=== PATIENT | male | born 1945 | race Caucasian/White ===

== ENCOUNTER 2016-05-29 08:28 | Observation (INO) | payer OTHER, MEDICARE ==
[2016-05-29] MEDS ORDERED: NS 1,000 ML IV ONE ×2 (08:39→09:34)
--- NOTE | 2016-05-29 08:48 | CPEKG ---
Heart Rate: 61 RR Interval: 984 P-R Interval: 176 QRSD Interval: 92 QT Interval: 492 QTC Interval: 496 P Saucier: 3 QRS Saucier: 6 T Wave Saucier: 0 EKG Severity - BORDERLINE ECG - EKG Impression: SINUS RHYTHM EKG Impression: BORDERLINE PROLONGED QT INTERVAL Electronically Signed By: Ruby Phelps 29-May-2016 15:00:12
[2016-05-29 08:57] LABS: % IMMATURE GRANULYOCYTES 0.9 % (0.0-1.1); ABSOLUTE IMMATURE GRANULOCYTES 0.08 10^3/uL (0.00-0.10); ADD DIFF? NO; ADD MORPH? NO; ADD SCAN? NO; ATYPICAL LYMPHOCYTE FLAG 0 (0-99); FRAGMENT RBC FLAG 0 (0-99); HEMATOCRIT 36.9 % (40.0-51.0); HEMOGLOBIN 12.8 g/dL (13.7-17.5); LEFT SHIFT FLG 0 (0-99); LIPEMIA HEMOLYSIS FLAG 90 (0-99); MEAN CELL HEMOGLOBIN 36.1 pg (27.9-34.1); MEAN CELL HEMOGLOBIN CONCENTR. 34.7 g/dL (32.4-36.7); MEAN CELL VOLUME 103.9 fL (81.5-99.8); MEAN PLATELET VOLUME 9.5 fL (8.7-11.7); PLATELET CLUMPS FLAG 0 (0-99); PLATELET COUNT 367 10^3/uL (150-400); RED BLOOD CELL COUNT 3.55 10^6/uL (4.40-6.38); RED CELL DISTRIBUTION WIDTH 13.6 % (11.5-15.2)
[2016-05-29 09:20] LABS: ANION GAP 10 mEq/L (8-16); CALCIUM 9.2 mg/dL (8.5-10.4); CARBON DIOXIDE 30 mEq/l (22-31); CHLORIDE 100 mEq/L (97-110); CREATININE 0.8 mg/dL (0.7-1.3); GLOMERULAR FILTRATION RATE > 60; GLUCOSE 78 mg/dL (70-100); POTASSIUM 3.8 mEq/L (3.5-5.2); SODIUM 140 mEq/L (134-144)
--- NOTE | 2016-05-29 09:33 | EDPHY ---
H & P Time Seen by Provider: 05/29/16 08:31 HPI/ROS: HPI Fall out of bed. 70-year-old male by ambulance from the [facility] living [facility]. Unwitnessed fall last night out of bed. undetermined down time. Patient found on floor. Patient was complaining of some vague upper back pain involving both shoulder blades. Denies chest pain. No palpitations. He does not remember the fall. He is thinks he hit his head but he is not sure. He denies being on antiplatelet or anticoagulant medications at this time. Denies any new weakness or loss of sensation in his extremities. No changes in vision. ROS: Constitutional: No fever, no chills. No weakness. Eyes: No discharge. No changes in vision. ENT: No sore throat. No nasal congestion or rhinorrhea. Respiratory: No cough. No shortness of breath. Cardiac: No chest pain, no palpitations. Gastrointestinal: No abdominal pain, no vomiting, no diarrhea. Genitourinary: No hematuria. No dysuria or increased frequency with urination. Musculoskeletal: No back pain. No neck pain. As above. No extremity pain. Skin: No rashes. Neurological: No headache. No focal weakness or altered sensation. Past medical history: Chronic respiratory disease, chronic pain, history of bone cancer, hypertension, lifetime smoker. Narcotic caution on previous medical records. Social history: Smoker. Denies alcohol. Physical Exam: General Appearance: Sleepy but easily arousable. This patient is responding to questions appropriately and in full sentences. This patient appears well- hydrated and well-nourished. Head: Normocephalic atraumatic except for a superficial abrasion mid upper forehead.. Face: Facial bones are stable on palpation. Eyes: Pupils equal and round and reactive to light, no pallor or injection. No lid erythema or edema. ENT, Mouth: Mucous membranes dry. Dentition is intact. No malocclusion of the jaw. No tongue lacerations or abrasions. Pharynx is clear. The bilateral nasal canals are clear. No septal hematoma. Respiratory: There are no retractions, lungs are clear to auscultation with good air movement bilaterally. Chest wall is stable to AP and lateral palpation. Cardiovascular: Regular rate and rhythm. No murmur. Gastrointestinal: Abdomen is soft and nontender, no masses, bowel sounds normal. Neurological: Motor sensory function is intact. Cranial nerves are normal. Cerebellar function intact. Skin: Warm and dry, no rashes. No lacerations, abrasions or contusions. Musculoskeletal: Neck is supple and nontender. The trachea is midline. Rightward scoliosis noted. No midline cervical, thoracic, lumbar or sacral tenderness on palpation. No flank tenderness on palpation. Extremities are symmetrical, full range of motion. All joints in the bilateral upper and bilateral lower extremities range without pain or impingement. No tenderness on palpation of the long bones in the bilateral upper and bilateral lower extremities. Psychiatric: No agitation. No depression. Database: EKG: EKG time is 8:46 a.m.; EKG shows a narrow complex normal sinus rhythm with a ventricular rate of 61. The ID, QRS, QT intervals are within normal limits. There are no ST-T wave changes indicative of ischemic or injury pattern. No evidence of right heart strain. Interpreted by me. Imaging: Chest x-ray PA and lateral; the cardiac mediastinal silhouette is unremarkable. Left-sided basilar pneumonia versus atelectasis. New mid thoracic compression fractures since January of 2016. No evidence pneumothorax. No other acute cardiopulmonary disease process noted. Interpreted by me. CT scan of head without contrast; atrophy. No acute pathology. Results were discussed with staff radiologist. Procedures: Emergency department course: IV was placed. He was placed on a vehicle monitor technician. EKG was performed and reviewed by myself. He will be sent for CT imaging of his head. Blood work including CK will be checked. Patient will be hydrated with a L of IV normal saline initially. Vital signs reviewed and are normal. 11:15 a.m., discussed results of chest x-ray with the patient and his nurses. Will treat for possible pneumonia. Blood cultures drawn. Patient given IV ceftriaxone and IV azithromycin. He does not meet SIRS criteria and sepsis. 11:35 a.m., spoke with hospitalist. Case discussed in detail. Patient accepted for admission under Dr. De Jesus. Differential Diagnosis: The differential diagnosis on this patient includes but is not limited to dehydration, opiate pain medication abuse, alcohol intoxication, rhabdomyolysis , head injury. This represents a partial list of diagnoses considered. These considerations are based on history, physical exam, past history, reassessment and diagnostic testing. Smoking Status: Current every day smoker Constitutional: Initial Vital Signs Temperature (C) 36.4 C 05/29/16 08:28 Heart Rate 76 05/29/16 08:28 Respiratory Rate 18 05/29/16 08:28 Blood Pressure 159/76 H 05/29/16 08:28 O2 Sat (%) 94 05/29/16 08:28 O2 Delivery Mode Nasal Cannula O2 (L/minute) 4 Allergies/Adverse Reactions: Sulfa (Sulfonamide Antibiotics) [Sulfa(Sulfonamide Antibiotics)] Allergy ( Verified 02/08/16 13:15) Home Medications: Medication Instructions Recorded Albuterol [Proventil Inhaler HFA 2 puffs IH Q4H PRN 05/29/16 (*)] Calcium Carbonate [Tums 500MG (*)] 500 mg PO PRN PRN 05/29/16 Cyclobenzaprine [Flexeril 10 MG 10 mg PO TID PRN 05/29/16 (*)] DULoxetine [Cymbalta 60 MG (*)] 60 mg PO DAILY 05/29/16 Gabapentin [Neurontin 300 MG (*)] 300 mg PO TID 05/29/16 Naproxen Sodium [Aleve 220 MG (*)] 220 mg PO QID PRN 05/29/16 Omeprazole 40 mg PO DAILY 05/29/16 Temazepam [Restoril 15 MG (*)] 30 mg PO HS PRN 05/29/16 Medical Decision Making - Data Points Laboratory Results: Laboratory Results 05/29/16 08:50 05/29/16 08:50 Medications Given: Discontinued Medications Albuterol/Ipratropium (Duoneb) 3 ml IH QID TERRY Stop: 11/25/16 15:59 Last Admin: 05/29/16 16:32 Dose: Not Given Sodium Chloride (Ns) 1,000 mls @ 0 mls/hr IV EDNOW ONE PRN Reason: Wide Open Stop: 05/29/16 08:40 Last Admin: 05/29/16 08:50 Dose: 1,000 mls Sodium Chloride (Ns) 1,000 mls @ 0 mls/hr IV ONCE ONE PRN Reason: Wide Open Stop: 05/29/16 09:35 Last Admin: 05/29/16 09:45 Dose: 1,000 mls Azithromycin 500 mg/ Dextrose 255 mls @ 255 mls/hr IV EDNOW ONE PRN Reason: Protocol Stop: 05/29/16 12:16 Last Admin: 05/29/16 12:03 Dose: 255 mls Ceftriaxone Sodium/Dextrose (Rocephin 1 Gm (Premix)) 50 mls @ 100 mls/hr IV EDNOW ONE PRN Reason: Protocol Stop: 05/29/16 11:46 Last Admin: 05/29/16 11:33 Dose: 50 mls Departure - Departure Disposition: [facility] Acute Clinical Impression: Dehydration, History of fall, Pneumonia, Thoracic compression fracture, Polysubstance abuse
[2016-05-29 10:09] LABS: ETHANOL SERUM 69 mg/dL (0-10)
[2016-05-29 10:21] LABS: TROPONIN I < 0.012 ng/mL (0-0.034)
[2016-05-29] MEDS ORDERED: AZITHROMYCIN IV 500 MG in D5W 250 ML IV ONE (11:17)
[2016-05-29] MEDS ORDERED: ONDANSETRON DISINTEGRATING 4 MG TAB PO PRN (15:56)
[2016-05-29] MEDS ORDERED: oxyCODONE IR 5 MG TAB PO PRN (15:56)
[2016-05-29] MEDS ORDERED: ONDANSETRON 4 MG/2 ML VIAL IVP PRN (15:56)
[2016-05-29] MEDS ORDERED: ALBUTEROL 3 ML DEYVIAL IH PRN (15:56)
[2016-05-29] MEDS ORDERED: ACETAMINOPHEN 325 MG TAB PO PRN (15:56)
[2016-05-29] MEDS ORDERED: PROMETHAZINE HCL 25 MG/ML INJ IVP PRN (15:56)
[2016-05-29] MEDS ORDERED: CYCLOBENZAPRINE 10 MG TAB PO PRN (15:58)
[2016-05-29] MEDS ORDERED: TEMAZEPAM 15 MG CAP PO PRN (15:58)
[2016-05-29] MEDS ORDERED: CALCIUM CARBONATE 500 MG CHEWABLE TAB PO PRN (15:58)
[2016-05-29] MEDS ORDERED: IPRATROPIUM/ALBUTEROL 3 ML DEYVIAL IH SCH (16:00)
[2016-05-29] MEDS ORDERED: NS 1,000 ML IV SCH (16:00)
[2016-05-29] MEDS ORDERED: LORazepam 2 MG/ML INJ IVP PRN (16:24)
--- NOTE | 2016-05-29 17:53 | GHP ---
DATE OF ADMISSION: 05/29/2016 CHIEF COMPLAINT: "I do not know why I am here." HISTORY: This is a 70-year-old man with past medical history of chronic alcohol abuse as well as pr evious chronic narcotic and benzodiazepine dependency and COPD who presents with a history of having fallen out of bed at his assisted living facility. Apparently he was found on the floor. At the t [place] my evaluation, patient has no recollection of falling. He states he has no idea how he ended up here in the hospital. He notes this is normal for him, as his memory has been getting worse recent ly. He was found to have evidence of pneumonia while in the ER and is being admitted for treatment of pneumonia, which was explained to him. He, at this time, other than confusion as to why he is he re, has no complaints. PAST MEDICAL HISTORY: Includes: 1. Chronic alcohol abuse. 2. Chronic narcotic and benzodiazepine use, which is now no longer occurring. 3. COPD. 4. History of prostate cancer with bony metastases. 5. Prior aspiration pneumonia. 6. Prior depression with suicide attempts. 7. Cervical spinal stenosis. FAMILY HISTORY: This was reviewed, and per chart review, includes a cousin with prostate cancer. SOCIAL HISTORY: The patient lives at [facility]. He denies having any family i [facility], but does have an MD POA listed named Ed. Has remote tobacco use, and notes he is currently using alcohol. For that reason, he was taken off his narcotics and benzos. ADVANCED DIRECTIVE: Last advanced directive in our system states that he is full code, but would li ke care withdrawn should he fail to progress. He does have a palliative care note, however, subsequ ent to that, saying that he is DNR. This is clearly documented, and was verified by his MD POA, and this will be documented as his goals of care. REVIEW OF SYSTEMS: This is unobtainable secondary to patient's mental status, though he denies any complaints. MEDICATIONS: Include: 1. Calcium carbonate. 2. Temazepam. 3. Omeprazole. 4. Gabapentin. 5. Cymbalta. 6. Flexeril. 7. Naproxen. 8. Albuterol. ALLERGIES: Include sulfa. PHYSICAL EXAMINATION: VITAL SIGNS: BP 156/76, heart rate 68, respiratory rate 20, O2 sats 95% on 4 L. Temperature is 36.8. GENERAL APPEARANCE: This is a chronically ill-appearing male, appears ol [place] than stated age. He is awake and alert. No acute distress. EYES: Anicteric. HEENT: Poor de ntition, oropharynx clear. CARDIOVASCULAR: Regular rate and rhythm, no MRG. PULMONARY: Decreased breath sounds throughout. He does have left basilar crackles. ABDOMEN: Soft, nontender, positive bowel sounds. EXTREMITIES: No clubbing, cyanosis, or edema. SKIN: Warm, dry, well perfused. NEURO/PSYCH: Patient has sign ificant cognitive deficits and very poor memory, but is alert and appropriate. CLINICAL DATA: Labs reviewed, significant for white blood cell count of 8.9, hematocrit 36.9, plate lets of 367. Chemistry is unremarkable. Troponin is less than 0.012. Chest x-ray shows left basilar pneumonia versus left basilar atelectasis. This was personally revie wed. Head CT is negative for any acute findings. ASSESSMENT/PLAN: This is a 70-year-old man with chronic alcohol abuse as well as chronic obstructiv e pulmonary disease who presents with unwitnessed fall and presumed pneumonia. 1. Pneumonia. The patient is a very poor historian, though he does have mild hypoxia and evidence of a left-sided infiltrate on chest x-ray, which is atelectasis versus pneumonia. He has been start ed on ceftriaxone and azithromycin. We will transition him to oral levofloxacin tomorrow given that I suspect this is a relatively mild pneumonia. Will check influenza swab. 2. Acute hypoxic respiratory failure. The patient is requiring 4 L of O2 to maintain oxygen satura tions in the low 90s. He does have underlying chronic obstructive pulmonary disease, but no clear e vidence of acute exacerbation. It sounds as if his mobility is quite limited at baseline, atelectas is undoubtedly contributing. Ambulate t.i.d., IS, p.r.n. albuterol nebs. Suspect some of this is l ikely chronic. 3. Chronic alcohol abuse. Apparently patient recently had his narcotic contract severed with his randy coronel management doctor due to his ongoing alcohol abuse. I did discuss with him if he intends to laurence t drinking, and he was able to state that he is not. He is definitely at risk for withdrawal, has h ad withdrawal in the past. We will start p.r.n. vodka and monitor for signs or symptoms of withdraw al. We will provide multivitamin, thiamine, and folate. 4. History of prostate cancer. Some discussion in the chart whether or not this was ever an accura te diagnosis, but apparently he has had history of prostate cancer with bony metastases. At any rat e, it does not appear that he is currently undergoing treatment, and this is not contributing to his acute presentation. 5. Code status. The patient is too confused to have this conversation. On chart review, there are a couple of contradictory notes, although the most recent note stated that he should be DNR, and th is was confirmed by his MD ROXANA, Ed. Will ask Palliative to get involved, as there are some notes al so on the chart from the patient that sound as if he does not want any medical care and query if he should be readmitted to the hospital in the future. 6. Patient is new to my care. Old records reviewed. Summary is as per HPI and past medical histor y. Care plan reviewed with ER physician, including plans for treatment of pneumonia. /[id number]/MODL
[2016-05-29] MEDS ORDERED: VODKA 50 ML BOTTLE PO SCH (18:00)
[2016-05-29] MEDS: GABAPENTIN 300 MG CAP PO SCH ×2 (18:16→21:58)
[2016-05-29] MEDS: MAG HYDROX/AL HYDROX/SIMETH 30 ML UDCUP PO PRN (22:05)
[2016-05-29] MEDS: IPRATROPIUM/ALBUTEROL 4GM MDI IH SCH (22:19)
[2016-05-29 22:35] VITALS: RESP 18
[2016-05-30 05:10] LABS: % IMMATURE GRANULYOCYTES 0.6 % (0.0-1.1); ABSOLUTE IMMATURE GRANULOCYTES 0.06 10^3/uL (0.00-0.10); ADD DIFF? NO; ADD MORPH? NO; ADD SCAN? NO; ATYPICAL LYMPHOCYTE FLAG 10 (0-99); FRAGMENT RBC FLAG 0 (0-99); HEMATOCRIT 29.5 % (40.0-51.0); HEMOGLOBIN 10.3 g/dL (13.7-17.5); LEFT SHIFT FLG 0 (0-99); LIPEMIA HEMOLYSIS FLAG 90 (0-99); MEAN CELL HEMOGLOBIN 36.4 pg (27.9-34.1); MEAN CELL HEMOGLOBIN CONCENTR. 34.9 g/dL (32.4-36.7); MEAN CELL VOLUME 104.2 fL (81.5-99.8); MEAN PLATELET VOLUME 9.2 fL (8.7-11.7); PLATELET CLUMPS FLAG 0 (0-99); PLATELET COUNT 291 10^3/uL (150-400); RED BLOOD CELL COUNT 2.83 10^6/uL (4.40-6.38); RED CELL DISTRIBUTION WIDTH 14.1 % (11.5-15.2)
[2016-05-30 05:26] LABS: ANION GAP 6 mEq/L (8-16); CALCIUM 7.5 mg/dL (8.5-10.4); CARBON DIOXIDE 26 mEq/l (22-31); CHLORIDE 111 mEq/L (97-110); CREATININE 0.6 mg/dL (0.7-1.3); GLOMERULAR FILTRATION RATE > 60; GLUCOSE 85 mg/dL (70-100); MAGNESIUM 1.6 mg/dL (1.6-2.3); POTASSIUM 3.4 mEq/L (3.5-5.2); SODIUM 143 mEq/L (134-144)
[2016-05-30] MEDS: IPRATROPIUM/ALBUTEROL 4GM MDI IH SCH ×2 (06:43→13:27)
[2016-05-30] MEDS ORDERED: FOLIC ACID 1 MG TAB PO SCH (09:00)
[2016-05-30] MEDS ORDERED: DULoxetine 60 MG CAP PO SCH (09:00)
[2016-05-30] MEDS ORDERED: AZITHROMYCIN IV 500 MG in D5W 250 ML IV SCH (09:00)
[2016-05-30] MEDS ORDERED: MULTIVITAMINS 1 EACH TAB PO SCH (09:00)
[2016-05-30] MEDS ORDERED: THIAMINE HCL 100 MG TAB PO SCH (09:00)
[2016-05-30] MEDS ORDERED: PANTOPRAZOLE SODIUM 40 MG TAB PO SCH (09:00)
[2016-05-30] MEDS ORDERED: ENOXAPARIN 40 MG/0.4 ML SYR SC SCH (09:00)
[2016-05-30] MEDS ORDERED: NON-FORMULARY NEW DRUG (Omeprazole [Omeprazole] 40 MG) PO SCH (09:00)
[2016-05-30] MEDS: GABAPENTIN 300 MG CAP PO SCH (10:32)
[2016-05-30 11:32] VITALS: BP 129/80; PULSE 95; TEMP 99; O2SAT 94
--- NOTE | 2016-05-30 12:07 | PDDCSUM ---
Discharge Summary Discharge Summary: Dates of service 05/29-05/30/16 Discharge dx: # LLL PNA # cognitive deficits/dementia # falll from bed # alcohol abuse and dependency # hx of chronic narcotic and benzo dependency Procedures/consulations: none Hospital course by problem: # LLL pna: mild and without significant sxs, treated with levofloxacin and dc to complete course # dementia: appears relatively advanced in terms of his memory deficits, resides in assisted living currently and may be headed towards higher level of care in the near future but not currently interested # etoh abuse: does not plan to quit, given etoh in house Dc to assisted living Meds SEE EHR >35 min spent in dc more than half in coordination of care
[2016-05-30] MEDS: MAG HYDROX/AL HYDROX/SIMETH 30 ML UDCUP PO PRN (13:42)
== END 2016-05-30 14:50 | disposition home health service (06) ==
LOC: EDUNIT# → INTOOBSV 11:36 → F3E 15:47
PROVIDERS: ADMIT Internal Medicine; ATTEND Internal Medicine
DX: J18.9 Pneumonia, unspecified organism (principal); F03.90 Unspecified dementia, unspecified severity, without behavioral disturbance, psychotic disturbance, mood disturbance, and anxiety; S22.000A Wedge compression fracture of unspecified thoracic vertebra, initial encounter for closed fracture; W06.XXXA Fall from bed, initial encounter; F10.20 Alcohol dependence, uncomplicated; F11.21 Opioid dependence, in remission; I10 Essential (primary) hypertension; F17.210 Nicotine dependence, cigarettes, uncomplicated; J44.9 Chronic obstructive pulmonary disease, unspecified; Y92.122 Bedroom in nursing home as the place of occurrence of the external cause; Z85.830 Personal history of malignant neoplasm of bone; Z91.5 Personal history of self-harm; Z85.46 Personal history of malignant neoplasm of prostate
CPT/HCPCS: 70450; 71020; 93005; 96361; 96365; 96367; 97165; 99285; G0378; G8987; G8988; J0456; J0696; J1650; 80305; G0480

== ENCOUNTER 2016-06-06 03:20 | Inpatient (IN) | payer OTHER, MEDICARE ==
[2016-06-06] MEDS ORDERED: NS 500 ML IV ONE (03:23)
--- NOTE | 2016-06-06 03:34 | EDPHY ---
H & P HPI/ROS: HPI CHIEF COMPLAINT: Generalized weakness, fall HISTORY OF PRESENT ILLNESS: This patient is 70-year-old male, he presents emergency room by EMS after he had 2 separate falls today. Fire came to give him a lift assist any started complaining of right lateral rib pain and pelvis pain. They contacted EMS and EMS brought him to the emergency room. He was recently here on May 30 with a left lower lobe pneumonia. He does have a history of dementia, recurrent falls, alcohol abuse, narcotic abuse, benzo abuse. He presents emergency room tonight stating that he feels globally weak. He does complain of right lateral rib pain also complains of bilateral hip pain. Patient was able to ambulate to the EMS stretcher. But appears very weak. Does complain of nausea no chest pain does complain of shortness of breath. Past Medical History: Left lower lobe pneumonia recently diagnosed recently hospitalized on May 30, dementia, recurrent falls, alcohol abuse, history of narcotic benzo use, oxygen dependent 5 L lives independently at [facility] Past Surgical History: No recent surgical history Social History: Alcohol use, lives at [facility] independent living size Family History:Noncontributory ROS REVIEW OF SYSTEMS: A comprehensive 10 point review of systems is otherwise negative aside from elements mentioned in the history of present illness. Exam Constitutional appears frail, triage nursing summary reviewed, vital signs reviewed, awake/alert. Eyes normal conjunctivae and sclera, EOMI, PERRLA. HENT normal inspection, atraumatic, moist mucus membranes, no epistaxis, neck supple/ no meningismus, no raccoon eyes. Respiratory crackles bilateral bases, normal breath sounds, no respiratory distress, no wheezing. Cardiovascular rate normal, regular rhythm, no murmur, no edema, distal pulses normal. Gastrointestinal soft, non-tender, no rebound, no guarding, normal bowel sounds, no distension, no pulsatile mass. Genitourinary no CVA tenderness. Musculoskeletal no midline vertebral tenderness, full range of motion, no calf swelling, no tenderness of extremities, no meningismus, good pulses, neurovascularly intact. Skin pink, warm, & dry, no rash, skin atraumatic. Neurologic awake, alert and oriented x 3, AAOx3, moves all 4 extremities equally, motor intact, sensory intact, CN II-XII intact, normal cerebellar, normal vision, normal speech. Psychiatric normal mood/affect. Heme/Lymph/Immune no lymphadenopathy. Differential Diagnosis: Includes but is not limited to in a particular order: Worsening pneumonia, failure to thrive, dehydration, electrolyte abnormality, sepsis, hypoxia Medical Decision Making: Plan for this patient's patient had an IV established obtain blood work, patient will need an EKG, troponin, chest x-ray pelvis x-ray CT scan of his head due to fall. Re-evaluation: ED x-ray chest negative for evidence of acute trauma. There is a left lower lobe infiltrate. Image interpreted by myself. ED x-ray pelvis: No evidence of acute trauma specifically no evidence of acute pelvic fracture. Image interpreted myself. CT scan of the head without IV contrast The results of the study are head without IV contrast are negative for acute traumatic injury The study was read by Dr. Ni. I viewed the images myself on the PACS system. EKG interpretation by me on record in [employer] system. Impression time of EKG 3:35 a.m., this is sinus rhythm rate of 65 otherwise unremarkable EKG no acute ischemic changes. 0421: re-evaluation this time this patient is resting comfortably appears nontoxic. Patient need to be admitted for generalized weakness failure to thrive recurrent falls. Left lower lobe pneumonia. I do not see any acute evidence of traumatic injury on his CT scan of his head chest x-ray or pelvis x- ray. I do have a great concern about discharging him as he has recurrent falls and is injuring himself he does drink alcohol he does appear frail and cachectic and was just recently here in the hospital. I think the best plan for this patient to be admitted for generalized weakness failure to thrive. Hydration. Further evaluation of the left lower lobe infiltrate with a CT scan of his chest. And possible higher level of care placement at [facility]. As he is only in the independent living facility. Source: Patient, EMS - Medical/Surgical History Hx Asthma: No Hx Chronic Respiratory Disease: Yes Hx Diabetes: No Hx Cardiac Disease: Yes Hx Renal Disease: No Hx Cirrhosis: No Hx Alcoholism: No Hx HIV/AIDS: No Hx Splenectomy or Spleen Trauma: No Other PMH: HX of Bone CA, HTN, is a life time smoker 3/4 ppd now - Social History Smoking Status: Current every day smoker Constitutional: Initial Vital Signs O2 Sat (%) 93 06/06/16 03:23 O2 Delivery Mode Nasal Cannula O2 (L/minute) 5 Allergies/Adverse Reactions: Sulfa (Sulfonamide Antibiotics) [Sulfa(Sulfonamide Antibiotics)] Allergy ( Verified 02/08/16 13:15) Home Medications: Medication Instructions Recorded Albuterol [Proventil Inhaler HFA 2 puffs IH Q4H PRN 05/29/16 (*)] Calcium Carbonate [Tums 500MG (*)] 500 mg PO PRN PRN 05/29/16 Cyclobenzaprine [Flexeril 10 MG 10 mg PO TID PRN 05/29/16 (*)] DULoxetine [Cymbalta 60 MG (*)] 60 mg PO DAILY 05/29/16 Gabapentin [Neurontin 300 MG (*)] 300 mg PO TID 05/29/16 Naproxen Sodium [Aleve 220 MG (*)] 220 mg PO QID PRN 05/29/16 Omeprazole 40 mg PO DAILY 05/29/16 Temazepam [Restoril 15 MG (*)] 30 mg PO HS PRN 05/29/16 Acetaminophen [Tylenol 325mg (*)] 650 mg PO Q4HRS PRN #0 tab 05/30/16 Multivitamins [Multivitamin (*)] 1 each PO DAILY #0 tab 05/30/16 Thiamine HCl [Vitamin B-1] 100 mg PO DAILY #0 tab 05/30/16 levOFLOXACIN [levAQUIN (*)] 750 mg PO DAILY AT 10AM #5 tab 05/30/16 Medical Decision Making - Data Points Laboratory Results: Laboratory Results 06/06/16 03:30 06/06/16 03:30 06/06/16 06/06/16 06/06/16 03:30 03:30 03:30 WBC 8.86 10^3/uL 10^3/uL (3.80-9.50) RBC 3.01 10^6/uL L 10^6/uL (4.40-6.38) Hgb 10.8 g/dL L g/dL (13.7-17.5) Hct 31.1 % L % (40.0-51.0) MCV 103.3 fL H fL (81.5-99.8) MCH 35.9 pg H pg (27.9-34.1) MCHC 34.7 g/dL g/dL (32.4-36.7) RDW 13.8 % % (11.5-15.2) Plt Count 261 10^3/uL 10^3/uL (150-400) MPV 9.9 fL fL (8.7-11.7) Neut % (Auto) 64.3 % % (39.3-74.2) Lymph % (Auto) 24.0 % % (15.0-45.0) [place] % (Auto) 8.2 % % (4.5-13.0) Eos % (Auto) 2.3 % % (0.6-7.6) Baso % (Auto) 1.0 % % (0.3-1.7) Nucleat RBC Rel Count 0.0 % % (0.0-0.2) Absolute Neuts (auto) 5.69 10^3/uL 10^3/uL (1.70-6.50) Absolute Lymphs (auto) 2.13 10^3/uL 10^3/uL (1.00-3.00) Absolute Monos (auto) 0.73 10^3/uL 10^3/uL (0.30-0.80) Absolute Eos (auto) 0.20 10^3/uL 10^3/uL (0.03-0.40) Absolute Basos (auto) 0.09 10^3/uL 10^3/uL (0.02-0.10) Absolute Nucleated RBC 0.00 10^3/uL 10^3/uL (0-0.01) Immature Gran % 0.2 % % (0.0-1.1) Immature Gran # 0.02 10^3/uL 10^3/uL (0.00-0.10) PT 15.9 SEC H SEC (12.0-15.0) INR 1.27 H (0.83-1.16) APTT 33.0 SEC SEC (23.0-38.0) Sodium 141 mEq/L mEq/L (134-144) Potassium 3.4 mEq/L L mEq/L (3.5-5.2) Chloride 105 mEq/L mEq/L (97-110) Carbon Dioxide 28 mEq/l mEq/l (22-31) Anion Gap 8 mEq/L mEq/L (8-16) BUN 4 mg/dL L mg/dL (7-23) Creatinine 0.8 mg/dL mg/dL (0.7-1.3) Estimated GFR > 60 Glucose 82 mg/dL mg/dL (70-100) Calcium 9.3 mg/dL mg/dL (8.5-10.4) Magnesium 1.6 mg/dL mg/dL (1.6-2.3) Total Bilirubin 0.7 mg/dL mg/dL (0.1-1.4) Conjugated Bilirubin 0.4 mg/dL mg/dL (0.0-0.5) Unconjugated Bilirubin 0.3 mg/dL mg/dL (0.0-1.1) AST 25 IU/L IU/L (17-59) ALT 26 IU/L IU/L (21-72) Alkaline Phosphatase 115 IU/L IU/L (38-126) Creatine Kinase 98 IU/L IU/L (0-224) CK-MB (CK-2) Fraction 1.76 ng/mL ng/mL (0-3.19) Troponin I < 0.012 ng/mL ng/mL (0-0.034) NT-Pro-B Natriuret Pep 238 pg/mL H pg/mL (0-125) Total Protein 6.0 g/dL L g/dL (6.3-8.2) Albumin 2.9 g/dL L g/dL (3.5-5.0) Lipase 56.0 IU/L IU/L (23-300) Ethyl Alcohol 32 mg/dL H mg/dL (0-10) Medications Given: Discontinued Medications Sodium Chloride (Ns) 500 mls @ 0 mls/hr IV ONCE ONE PRN Reason: As Directed Stop: 06/06/16 03:24 Last Admin: 06/06/16 03:45 Dose: 500 mls Departure - Departure Disposition: [facility] Acute Clinical Impression: Generalized weakness, Recurrent falls Failure to thrive Qualifiers: Failure to thrive age range: in adult Qualified Code(s): R62.7 - Adult failure to thrive Condition: Fair Referrals: Patient,NotPresent [Primary Care Provider] - As per Instructions
--- NOTE | 2016-06-06 03:37 | CPEKG ---
Heart Rate: 65 RR Interval: 923 P-R Interval: 180 QRSD Interval: 88 QT Interval: 468 QTC Interval: 487 P Henning: 2 QRS Henning: 12 T Wave Henning: 0 EKG Severity - BORDERLINE ECG - EKG Impression: SINUS RHYTHM EKG Impression: BORDERLINE PROLONGED QT INTERVAL Electronically Signed By: Addi Felipe 06-Jun-2016 07:29:26
[2016-06-06 03:45] LABS: % IMMATURE GRANULYOCYTES 0.2 % (0.0-1.1); ABSOLUTE IMMATURE GRANULOCYTES 0.02 10^3/uL (0.00-0.10); ADD DIFF? NO; ADD MORPH? NO; ADD SCAN? NO; ATYPICAL LYMPHOCYTE FLAG 0 (0-99); FRAGMENT RBC FLAG 0 (0-99); HEMATOCRIT 31.1 % (40.0-51.0); HEMOGLOBIN 10.8 g/dL (13.7-17.5); LEFT SHIFT FLG 0 (0-99); LIPEMIA HEMOLYSIS FLAG 90 (0-99); MEAN CELL HEMOGLOBIN 35.9 pg (27.9-34.1); MEAN CELL HEMOGLOBIN CONCENTR. 34.7 g/dL (32.4-36.7); MEAN CELL VOLUME 103.3 fL (81.5-99.8); MEAN PLATELET VOLUME 9.9 fL (8.7-11.7); PLATELET CLUMPS FLAG 0 (0-99); PLATELET COUNT 261 10^3/uL (150-400); RED BLOOD CELL COUNT 3.01 10^6/uL (4.40-6.38); RED CELL DISTRIBUTION WIDTH 13.8 % (11.5-15.2)
[2016-06-06 03:53] LABS: INR 1.27 (0.83-1.16); PROTIME(PATIENT) 15.9 SEC (12.0-15.0)
[2016-06-06 03:59] LABS: ALANINE AMINOTRANSFERASE 26 IU/L (21-72); ALBUMIN 2.9 g/dL (3.5-5.0); ALKALINE PHOSPHATASE 115 IU/L (38-126); ANION GAP 8 mEq/L (8-16); ASPARTATE AMINOTRANSFERASE 25 IU/L (17-59); BILIRUBIN,TOTAL 0.7 mg/dL (0.1-1.4); BILIRUBIN-CONJUGATED 0.4 mg/dL (0.0-0.5); BILIRUBIN-UNCONJUGATED 0.3 mg/dL (0.0-1.1); CALCIUM 9.3 mg/dL (8.5-10.4); CARBON DIOXIDE 28 mEq/l (22-31); CHLORIDE 105 mEq/L (97-110); CREATININE 0.8 mg/dL (0.7-1.3); ETHANOL SERUM 32 mg/dL (0-10); GLOMERULAR FILTRATION RATE > 60; GLUCOSE 82 mg/dL (70-100); MAGNESIUM 1.6 mg/dL (1.6-2.3); POTASSIUM 3.4 mEq/L (3.5-5.2); SODIUM 141 mEq/L (134-144)
[2016-06-06 04:09] LABS: CREATINE KINASE-MB FRACTION 1.76 ng/mL (0-3.19); TROPONIN I < 0.012 ng/mL (0-0.034)
[2016-06-06] MEDS ORDERED: ONDANSETRON DISINTEGRATING 4 MG TAB PO PRN (04:43)
[2016-06-06] MEDS ORDERED: ONDANSETRON 4 MG/2 ML VIAL IVP PRN (04:43)
[2016-06-06] MEDS ORDERED: ALBUTEROL 3 ML DEYVIAL IH PRN (04:43)
[2016-06-06] MEDS ORDERED: oxyCODONE IR 5 MG TAB PO PRN (04:43)
[2016-06-06] MEDS ORDERED: NS 1,000 ML IV SCH (04:45)
[2016-06-06] MEDS ORDERED: PIPERACILLIN/TAZO 4.5 GM/DEX 100 ML IV ONE (05:04)
[2016-06-06] MEDS ORDERED: VANCOMYCIN HCL/NORMAL SALINE 250 ML IV ONE (05:04)
[2016-06-06] MEDS ORDERED: PROTOCOL POTASSIUM 1 DOSE MISC PRN (09:21)
[2016-06-06] MEDS ORDERED: PROTOCOL K PHOSPHATE 1 DOSE IV PRN (09:21)
[2016-06-06] MEDS ORDERED: PROTOCOL MAGNESIUM 1 DOSE IV PRN (09:21)
[2016-06-06] MEDS ORDERED: LORazepam 2 MG/ML INJ IVP PRN (09:37)
[2016-06-06] MEDS ORDERED: MAG HYDROX/AL HYDROX/SIMETH 30 ML UDCUP PO PRN (09:37)
[2016-06-06] MEDS ORDERED: LORazepam 1 MG TAB PO PRN (09:37)
[2016-06-06] MEDS: ENOXAPARIN 40 MG/0.4 ML SYR SC SCH (10:05)
--- NOTE | 2016-06-06 10:37 | GHP ---
[f rep st] HISTORY AND PHYSICAL DATE OF ADMISSION: 06/06/2016 CHIEF COMPLAINT: Falls. HISTORY OF PRESENT ILLNESS: This is a 70-year-old man with a history of longstanding alcohol abuse as well as chronic narcotic and benzodiazepine dependency and dementia, who presents status post multiple falls at home. Apparently, the fire department had to come to his house several times in order to help him off the ground. The fire department ultimately became concerned about his well being given horrific disarray of his living situation, and contacted EMS to have him brought to the emergency room. He was recently seen by myself in this hospital with a left lower lobe pneumonia, and at that time despite concerns that he was having failure to thrive, he felt very strongly that he wanted to go home to his cat and was not willing to consider other options such as SNF. At the time of my evaluation, patient is very somnolent and only minimally communicative. He does note that he feels weak and has pain in his hips and right flank. He really is unable to provide any other history secondary to his somnolence. PAST MEDICAL HISTORY: 1. Includes chronic alcohol abuse. 2. Chronic narcotic and benzodiazepine dependency. 3. Recent hospitalization for left lower lobe pneumonia. 4. Dementia. 5. History of prostate cancer with bony metastases. 6. COPD. 7. History of aspiration pneumonia. 8. Prior issues of depression and suicide attempt. 9. Cervical spine stenosis. FAMILY HISTORY: Cousin with prostate cancer. SOCIAL HISTORY: The patient has been residing at [facility]. He does have a cat and per EMS, there is cat feces and urine all over his home. He is a daily heavy drinker. Prior tobacco use. REVIEW OF SYSTEMS: A 10-point review of systems obtained. Negative except as per HPI. HOME MEDICATIONS: 1. Thiamine. 2. Restoril. 3. Omeprazole. 4. Naproxen. 5. Multivitamin. 6. Gabapentin. 7. Cymbalta. 8. Flexeril. 9. Tums. 10. Albuterol. 11. Tylenol. ALLERGIES: Sulfa. PHYSICAL EXAM: BP 125/73, heart rate 57, respiratory rate 20, O2 sats 92% on 5 L, temperature is 36.5. GENERAL APPEARANCE: The patient is chronically ill appearing. He is cachectic, he is somnolent, but arousable. EYES: Anicteric. HEENT: Oropharynx clear, poor dentition. Regular rate and rhythm, no MRG. CTA bilaterally to anterior exam. Decreased breath sounds throughout. ABDOMEN : Soft, nontender. Positive bowel sounds. EXTREMITIES: No clubbing, cyanosis , or edema. SKIN: Warm, dry, well perfused. NEURO/PSYCH: Again, patient is quite somnolent but arousable. He moves all 4 extremities. CLINICAL DATA: Labs reviewed. Significant for white blood cell count of 8.8, hematocrit of 31.1, platelets of 261. INR is 1.2. Chemistry significant for a potassium of 3.4, creatinine is 0.8. Troponin less than 0.012. LFTs are unremarkable. Chest x-ray shows persistent basilar consolidation with possible new left mid lung zone pneumonia. Pelvis x-ray personally reviewed and interpreted, showing nothing acute. Chest CT, personally reviewed and interpreted, showing multiple rib fractures that appear to be subacute in the left 4th through 11th ribs. Moderate T6 compression fracture and increasing versus new infiltrates in the lingular right middle lobe and right and left lower lobes with small ground glass opacity in the anterior left upper lobe, possible aspiration pneumonia. There is also evidence of cardiomegaly and a stable 4.1 cm ascending thoracic aortic aneurysm. Head CT: No acute intracranial abnormalities. EKG, personally reviewed and interpreted, shows sinus rhythm without acute ischemic changes. ASSESSMENT/PLAN: This is a 70-year-old man with a past medical history of chronic alcohol abuse, dementia and failure to thrive, presenting status post multiple falls at home with multiple rib fractures and worsening bilateral pneumonia. 1. Pneumonia. This is in the setting of recent hospitalization and multiple rib fractures. The patient is at high risk for aspiration given his chronic alcoholism and history of prior aspiration pneumonia. He had recently been treated with a course of levofloxacin, though uncertain if he continued to take this medication after discharge from hospital. He was given vancomycin and Zosyn in the emergency department which will be continued for the time being. Blood and sputum cultures are pending. 2. Acute hypoxic respiratory failure, currently requiring 5 L to maintain O2 sats in the mid 90s in the setting of above as well as acute encephalopathy. Treatment as per above as well as bronchodilators as needed. 3. Acute encephalopathy. The patient is quite somnolent, possibly related to medications given in the emergency department. He does have underlying dementia , and this also could represent delirium in the setting of acute illness. Will monitor for improvement. 4. Alcohol abuse and dependency. At his last hospitalization several days ago , patient was clear that he was not interested in quitting. At this time, given his significant worsening, it is unclear if he is able to even make that kind of decision. We will start him on CIWA protocol for now. Blood alcohol level at the time of presentation was 32. 5. Multiple rib fractures. Again, in the setting of frequent falling at home and alcoholism. IS, ambulation three times daily. 6. Failure to thrive. Again, the patient was found in a living situation that was noted to be likely not only unsanitary but unsafe. He has had adult protective services involved in the past, and they will likely need to be involved again. PT, OT and case management also will be involved during his hospitalization. 7. Code status. From prior hospitalizations, he has been noted to be DNR and this will be continued. 8. Disposition: Inpatient status. Patient will need greater than 48 hours stay for evaluation and management of above. The patient is new to my care. Care plan reviewed with Dr. Waller in the Emergency Department including plans for antibiotics. /[id number]/MODL MTDD
[2016-06-06 11:18] LABS: MAGNESIUM 1.6 mg/dL (1.6-2.3); POTASSIUM 3.7 mEq/L (3.5-5.2)
[2016-06-06] MEDS: PIPERACILLIN/TAZO 3.375 GM/DEX 50 ML IV SCH ×2 (12:44→18:03)
[2016-06-06] MEDS: CYCLOBENZAPRINE 10 MG TAB PO PRN (14:26)
[2016-06-06] MEDS: GABAPENTIN 300 MG CAP PO SCH ×2 (14:26→22:15)
[2016-06-06] MEDS ORDERED: VANCOMYCIN 750 MG in D5W 150 ML IV SCH (19:00)
[2016-06-06] MEDS: ACETAMINOPHEN 325 MG TAB PO PRN (19:18)
--- NOTE | 2016-06-06 19:21 | HOSPPROG ---
Hospitalist Progress Note Assessment/Plan: H&P reviewed, patient seen a examined. Agree with plan as per Dr. Péerz. I will follow-up in am. Objective: Vital Signs Temp Pulse Resp BP Pulse Ox 36.6 C 61 16 149/81 H 96 06/06/16 13:48 06/06/16 13:48 06/06/16 13:48 06/06/16 13:48 06/06/16 13:48 06/05/16 06/06/16 06/07/16 05:59 05:59 05:59 Intake Total 500 Balance 500 PT 15.9 SEC (12.0-15.0) H 06/06/16 03:30 INR 1.27 (0.83-1.16) H 06/06/16 03:30 ICD10 Worksheet Patient Problems: Problems Problem Status Onset Failure to thrive Acute Generalized weakness Acute Recurrent falls Acute Acute encephalopathy Acute Acute hyperactive alcohol withdrawal delirium Acute Altered mental status Acute Aspiration into airway Acute Chronic pain Acute Dehydration Acute History of fall Acute Opiate dependence, continuous Acute Palliative care encounter Acute Pancreatitis Acute Pneumonia Acute Pneumonia Acute Polypharmacy Acute Polysubstance abuse Acute Polysubstance dependence including opioid drug with daily use Acute Rib fractures Acute Thoracic compression fracture Acute
[2016-06-06 19:44] LABS: POTASSIUM 3.6 mEq/L (3.5-5.2)
[2016-06-06] MEDS ORDERED: POTASSIUM CL 10 MEQ TAB PO ONE (23:29)
[2016-06-07] MEDS: TEMAZEPAM 15 MG CAP PO PRN ×2 (01:07→19:41)
[2016-06-07] MEDS: PIPERACILLIN/TAZO 3.375 GM/DEX 50 ML IV SCH ×3 (01:38→12:18)
[2016-06-07] MEDS ORDERED: POTASSIUM CL 10 MEQ TAB PO ONE ×3 (02:30→20:42)
[2016-06-07 05:54] LABS: % IMMATURE GRANULYOCYTES 0.4 % (0.0-1.1); ABSOLUTE IMMATURE GRANULOCYTES 0.03 10^3/uL (0.00-0.10); ADD DIFF? NO; ADD MORPH? NO; ADD SCAN? NO; ATYPICAL LYMPHOCYTE FLAG 0 (0-99); FRAGMENT RBC FLAG 0 (0-99); HEMATOCRIT 29.8 % (40.0-51.0); HEMOGLOBIN 10.4 g/dL (13.7-17.5); LEFT SHIFT FLG 0 (0-99); LIPEMIA HEMOLYSIS FLAG 90 (0-99); MEAN CELL HEMOGLOBIN 36.7 pg (27.9-34.1); MEAN CELL HEMOGLOBIN CONCENTR. 34.9 g/dL (32.4-36.7); MEAN CELL VOLUME 105.3 fL (81.5-99.8); PLATELET CLUMPS FLAG 0 (0-99); PLATELET COUNT 229 10^3/uL (150-400); RED BLOOD CELL COUNT 2.83 10^6/uL (4.40-6.38); RED CELL DISTRIBUTION WIDTH 13.9 % (11.5-15.2)
[2016-06-07 06:05] LABS: ANION GAP 6 mEq/L (8-16); CALCIUM 7.8 mg/dL (8.5-10.4); CARBON DIOXIDE 25 mEq/l (22-31); CHLORIDE 109 mEq/L (97-110); CREATININE 0.7 mg/dL (0.7-1.3); GLOMERULAR FILTRATION RATE > 60; GLUCOSE 83 mg/dL (70-100); MAGNESIUM 1.5 mg/dL (1.6-2.3); POTASSIUM 3.3 mEq/L (3.5-5.2); SODIUM 140 mEq/L (134-144)
[2016-06-07] MEDS ORDERED: VANCOMYCIN HCL/NORMAL SALINE 250 ML IV SCH (07:00)
[2016-06-07] MEDS ORDERED: MAGNESIUM SULF 1 GM/DEXTROSE 100 ML IV ONE (07:31)
[2016-06-07] MEDS: PANTOPRAZOLE SODIUM 40 MG TAB PO SCH (08:49)
[2016-06-07] MEDS: MULTIVITAMINS 1 EACH TAB PO SCH (08:49)
[2016-06-07] MEDS: GABAPENTIN 300 MG CAP PO SCH ×3 (08:49→21:31)
[2016-06-07] MEDS: DULoxetine 60 MG CAP PO SCH (08:49)
[2016-06-07] MEDS: FOLIC ACID 1 MG TAB PO SCH (08:50)
[2016-06-07] MEDS: ENOXAPARIN 40 MG/0.4 ML SYR SC SCH (08:50)
[2016-06-07] MEDS ORDERED: NON-FORMULARY NEW DRUG (Omeprazole [Omeprazole] 40 MG) PO SCH (09:00)
[2016-06-07] MEDS: NICOTINE 14 MG/24 HR PATCH TD SCH (13:45)
--- NOTE | 2016-06-07 16:27 | HOSPPROG ---
Hospitalist Progress Note Assessment/Plan: * Aspiration pneumonia -change to PO Augmentin * COPD with chronic respiratory failure - baseline 4L * Etoh abuse -no signs of withdrawal * Prostate ca with naseem mets * Metabolic/toxic encephalopathy - improved * Multiple subacute rib fractures due to falls -unsafe living situation -patient now agreeable to SNF Subjective: no new complaints. Objective: Vital Signs Temp Pulse Resp BP Pulse Ox 36.7 C 79 16 135/69 H 94 06/07/16 15:06 06/07/16 15:06 06/07/16 15:06 06/07/16 15:06 06/07/16 15:06 Microbiology 06/07/16 08:10 - Final Sputum, Expectorated Laboratory Results 06/07/16 05:30 06/07/16 05:30 06/06/16 06/07/16 06/08/16 05:59 05:59 05:59 Intake Total 500 Balance 500 PT 15.9 SEC (12.0-15.0) H 06/06/16 03:30 INR 1.27 (0.83-1.16) H 06/06/16 03:30 - Physical Exam Constitutional: no apparent distress, appears nourished, not in pain Cardiovascular: regular rate and rhythym, no murmur, rub, or gallop Respiratory: no respiratory distress, no rales or rhonchi, clear to auscultation Gastrointestinal: normoactive bowel sounds, soft, non-tender abdomen, no palpable masses Skin: no rashes or abrasions, no fluctuance, no induration Neurologic: AAOx3, sensation intact bilaterally Psychiatric: interacting appropriately, not anxious, not encephalopathic, thought process linear ICD10 Worksheet Patient Problems: Problems Problem Status Onset Failure to thrive Acute Generalized weakness Acute Recurrent falls Acute Acute encephalopathy Acute Acute hyperactive alcohol withdrawal delirium Acute Altered mental status Acute Aspiration into airway Acute Chronic pain Acute Dehydration Acute History of fall Acute Opiate dependence, continuous Acute Palliative care encounter Acute Pancreatitis Acute Pneumonia Acute Pneumonia Acute Polypharmacy Acute Polysubstance abuse Acute Polysubstance dependence including opioid drug with daily use Acute Rib fractures Acute Thoracic compression fracture Acute
[2016-06-07] MEDS ORDERED: PIPERACILLIN SODIUM/TAZOBACTAM 3.375 GM in D5W 50 ML IV SCH (18:00)
[2016-06-07] MEDS: CYCLOBENZAPRINE 10 MG TAB PO PRN (19:41)
[2016-06-07] MEDS: ACETAMINOPHEN 325 MG TAB PO PRN (19:41)
[2016-06-07] MEDS: AMOXICILLIN/CLAVULANATE POT 875/125 MG TAB PO SCH (19:42)
[2016-06-07 20:22] LABS: POTASSIUM 3.9 mEq/L (3.5-5.2)
[2016-06-08 05:35] LABS: % IMMATURE GRANULYOCYTES 0.2 % (0.0-1.1); ABSOLUTE IMMATURE GRANULOCYTES 0.02 10^3/uL (0.00-0.10); ADD DIFF? NO; ADD MORPH? NO; ADD SCAN? NO; ATYPICAL LYMPHOCYTE FLAG 10 (0-99); FRAGMENT RBC FLAG 0 (0-99); HEMATOCRIT 29.8 % (40.0-51.0); HEMOGLOBIN 10.3 g/dL (13.7-17.5); LEFT SHIFT FLG 0 (0-99); LIPEMIA HEMOLYSIS FLAG 90 (0-99); MEAN CELL HEMOGLOBIN 36.8 pg (27.9-34.1); MEAN CELL HEMOGLOBIN CONCENTR. 34.6 g/dL (32.4-36.7); MEAN CELL VOLUME 106.4 fL (81.5-99.8); MEAN PLATELET VOLUME 9.6 fL (8.7-11.7); PLATELET CLUMPS FLAG 10 (0-99); PLATELET COUNT 214 10^3/uL (150-400); RED CELL DISTRIBUTION WIDTH 14.1 % (11.5-15.2)
[2016-06-08 06:20] LABS: ANION GAP 4 mEq/L (8-16); CARBON DIOXIDE 28 mEq/l (22-31); CHLORIDE 109 mEq/L (97-110); CREATININE 0.6 mg/dL (0.7-1.3); GLOMERULAR FILTRATION RATE > 60; GLUCOSE 110 mg/dL (70-100); MAGNESIUM 1.9 mg/dL (1.6-2.3); POTASSIUM 3.9 mEq/L (3.5-5.2); SODIUM 141 mEq/L (134-144)
[2016-06-08] MEDS ORDERED: POTASSIUM CL 10 MEQ TAB PO ONE (06:56)
[2016-06-08 08:38] VITALS: BP 143/73; PULSE 65; TEMP 98.4
[2016-06-08] MEDS: PANTOPRAZOLE SODIUM 40 MG TAB PO SCH (09:35)
[2016-06-08] MEDS: AMOXICILLIN/CLAVULANATE POT 875/125 MG TAB PO SCH (09:37)
[2016-06-08] MEDS: GABAPENTIN 300 MG CAP PO SCH (09:37)
[2016-06-08] MEDS: MULTIVITAMINS 1 EACH TAB PO SCH (09:37)
[2016-06-08] MEDS: NICOTINE 14 MG/24 HR PATCH TD SCH (09:37)
[2016-06-08] MEDS: DULoxetine 60 MG CAP PO SCH (09:38)
[2016-06-08] MEDS: FOLIC ACID 1 MG TAB PO SCH (09:38)
[2016-06-08] MEDS: ENOXAPARIN 40 MG/0.4 ML SYR SC SCH ×2 (09:38→09:46)
--- NOTE | 2016-06-08 10:54 | GDS ---
[f rep st] DISCHARGE SUMMARY DIAGNOSES: 1. Aspiration pneumonia. 2. Acute chronic obstructive pulmonary disease exacerbation. 3. Acute on chronic respiratory failure. 4. Chronic narcotic and benzodiazepine dependency. 5. Dementia. 6. History of prostate cancer with bony metastasis. 7. Depression. 8. Cervical spine stenosis. PROCEDURES DONE: Chest CT, subacute fracture of the left posterior 4th through 11th ribs, moderate T6 compression fracture, increasing and/or new infiltrate in the lingular right middle lobe and righ t left lower lobes, with small ground-glass opacities, cardiomegaly. Head CT without contrast, no a cute abnormalities. HOSPITAL COURSE: The patient is a 70-year-old man, with the above past medical history, who present s with falls. He has a long standing history of alcohol abuse, as well of chronic narcotic and mayte odiazepine dependency and dementia, who has had multiple falls at his independent living apartment. Apparently, his home is in disarray. However, he has refused any discussion during his hospital st ay about custodial. He was started on appropriate antibiotics for aspiration pneumonia, and i mproved significantly over the course of his hospitalization. Currently, on the day of discharge, ba cho is alert and oriented. He is able to tell me his medications and his living situation. He is anx ious to go back to [place] to be with his cat, and refuses any further talk of rehab care. His ot her medical issues remain fairly stable. He is requiring oxygen here in the hospital, and is close to baseline, but not quite there. He is certainly stable enough to return home at this time. CONDITION ON DISCHARGE: Guarded. His vital signs are stable. He is on anywhere from 4-6 L, satura ting in the high 90s, afebrile, heart rate 65, blood pressure 143/73. He is alert and oriented. Tajna ngs are clear, but diminished. There is no edema. Heart is regular. DISCHARGE MEDICATIONS: Please see discharge medication form. FOLLOWUP: The patient will be discharged to [facility]. He states he will leave AMA unless he can go home today. He needs to follow up with his primary care provider early next we ek. He is agreeable to this plan, as long as we discharge him today. Total time spent on day of discharge and coordination of care, 35 minutes. /[id number]/MODL
[2016-06-08 11:10] VITALS: RESP 18; O2SAT 93
[2016-06-09] MEDS ORDERED: THIAMINE HCL 100 MG TAB PO SCH (09:00)
== END 2016-06-08 11:38 | disposition home or self-care (01) | DRG 177 ==
LOC: EDUNIT# → F3E 13:34
PROVIDERS: ADMIT Internal Medicine; ATTEND Internal Medicine
DX: J69.0 Pneumonitis due to inhalation of food and vomit (principal); G92 Toxic encephalopathy; R62.7 Adult failure to thrive; S22.42XA Multiple fractures of ribs, left side, initial encounter for closed fracture; S22.050A Wedge compression fracture of T5-T6 vertebra, initial encounter for closed fracture; J96.21 Acute and chronic respiratory failure with hypoxia; C79.51 Secondary malignant neoplasm of bone; I10 Essential (primary) hypertension; J44.1 Chronic obstructive pulmonary disease with (acute) exacerbation; I71.2 Thoracic aortic aneurysm, without rupture; M48.02 Spinal stenosis, cervical region; F10.10 Alcohol abuse, uncomplicated; F11.20 Opioid dependence, uncomplicated; F17.210 Nicotine dependence, cigarettes, uncomplicated; F13.10 Sedative, hypnotic or anxiolytic abuse, uncomplicated; W19.XXXA Unspecified fall, initial encounter; Z66 Do not resuscitate
CPT/HCPCS: 92523-GN; 92610-GN; 97161-GP; 97165-GO; 97535-GO; G0480; G8978-GP-CJ; G8979-GP-CI; G8987-GO-CI; G8987-GO-CL; G8988-GO-CI; G8989-GO-CI; G8996-GN-CH; G8997-GN-CH; G8998-GN-CH; G9168-GN-CK; G9169-GN-CJ; J1650; J2543; J3370; J3475

== ENCOUNTER → 2016-07-03 | Outpatient (CLI) | payer OTHER, MEDICARE | LOC: BMCIMAGING 08:36 | PROVIDERS: ATTEND Internal Medicine | DX: K82.4 Cholesterolosis of gallbladder (principal); N28.1 Cyst of kidney, acquired; I70.0 Atherosclerosis of aorta ==

== ENCOUNTER 2016-07-15 01:16 | Emergency (ER) | payer OTHER, MEDICARE ==
[2016-07-15] MEDS ORDERED: NS 1,000 ML IV ONE (01:23)
--- NOTE | 2016-07-15 01:27 | EDPHY ---
H & P HPI/ROS: HPI CHIEF COMPLAINT: Alcohol intoxication HISTORY OF PRESENT ILLNESS: Patient is a 70-year-old male who is intoxicated presents emergency room by ambulance after EMS was called to help give a lift assist for this patient at his living facility at [place]. The patient has been drinking liquor all evening. EMS make contact with him and placed him back in his chair however once they were leaving he fell again they decided it was to an safe to leave him at his independent living facility brought him to the emergency room. Of note upon arrival here in emergency room the patient smells of alcohol, he is slurring his speech, he is intoxicated. There is an abrasion to his back but otherwise atraumatic exam. He does appear dehydrated. Patient has no complaints. Past Medical History: Aspiration pneumonia, COPD, dementia, benzo narcotic dependency, prostate cancer with bony Mets, depression, alcoholism Past Surgical History: No recent surgical history Social History: Lives at [facility] independent living Family History: Noncontributory ROS REVIEW OF SYSTEMS: A comprehensive 10 point review of systems is otherwise negative aside from elements mentioned in the history of present illness. Exam Constitutional nontoxic appearing, intoxicated alcohol, smells of alcohol, triage nursing summary reviewed, vital signs reviewed, awake/alert. Eyes normal conjunctivae and sclera, EOMI, PERRLA. HENT head/neck: atraumatic, normocephalic, normal inspection, atraumatic, moist mucus membranes, no epistaxis, neck supple/ no meningismus, no raccoon eyes. Respiratory clear to auscultation bilaterally, normal breath sounds, no respiratory distress, no wheezing. Cardiovascular rate normal, regular rhythm, no murmur, no edema, distal pulses normal. Gastrointestinal soft, non-tender, no rebound, no guarding, normal bowel sounds, no distension, no pulsatile mass. Genitourinary no CVA tenderness. Musculoskeletal no midline vertebral tenderness, full range of motion, no calf swelling, no tenderness of extremities, no meningismus, good pulses, neurovascularly intact. Skin abrasion to right back, pink, warm, & dry, no rash, skin atraumatic. Neurologic awake, alert and oriented x 3, AAOx3, moves all 4 extremities equally, motor intact, sensory intact, CN II-XII intact, normal vision, slurring speech. Psychiatric normal mood/affect. Heme/Lymph/Immune no lymphadenopathy. Differential Diagnosis: Includes but is not limited to in a particular order acute alcohol intoxication, electrolyte disturbance, dehydration, generalized weakness, failure to thrive Medical Decision Making: Plan for patient IV establishment, gentle hydration, check blood work, alcohol level, lytes, monitor for sobriety. Re-evaluation: ED x-ray chest one view; left midlung infiltrate same his old x-ray. Poor inspiratory effort otherwise unremarkable. [id number]: Patient ambulated well to the bathroom steady gait. He does use a walker at home. The further discussion with the patient states would like to be discharged from the emergency room you like to go home. His alcohol level was noted to be elevated here but he is now sober. Steady gait. Safe for discharge. Source: Patient, EMS - Medical/Surgical History Hx Asthma: No Hx Chronic Respiratory Disease: Yes Hx Diabetes: No Hx Cardiac Disease: Yes Hx Renal Disease: No Hx Cirrhosis: No Hx Alcoholism: No Hx HIV/AIDS: No Hx Splenectomy or Spleen Trauma: No Other PMH: HX of Bone CA mets from prostate, HTN, is a life time smoker 3/4 ppd now , chronic etoh, narcs and benzos, chronic pain - Social History Smoking Status: Current every day smoker Constitutional: Initial Vital Signs Heart Rate 72 07/15/16 01:16 Respiratory Rate 16 07/15/16 01:16 Blood Pressure 94/63 L 07/15/16 01:16 O2 Sat (%) 92 07/15/16 01:16 O2 Delivery Mode Nasal Cannula O2 (L/minute) 4 Allergies/Adverse Reactions: Sulfa (Sulfonamide Antibiotics) [Sulfa(Sulfonamide Antibiotics)] Allergy ( Verified 02/08/16 13:15) Home Medications: Medication Instructions Recorded Albuterol [Proventil Inhaler HFA 2 puffs IH Q4H PRN 05/29/16 (*)] Calcium Carbonate [Tums 500MG (*)] 500 mg PO PRN PRN 05/29/16 Cyclobenzaprine [Flexeril 10 MG 10 mg PO TID PRN 05/29/16 (*)] DULoxetine [Cymbalta 60 MG (*)] 60 mg PO DAILY 05/29/16 Gabapentin [Neurontin 300 MG (*)] 600 mg PO TID 05/29/16 Naproxen Sodium [Aleve 220 MG (*)] 220 mg PO QID PRN 05/29/16 Omeprazole 40 mg PO DAILY 05/29/16 Temazepam [Restoril 15 MG (*)] 30 mg PO HS PRN 05/29/16 Acetaminophen [Tylenol 325mg (*)] 650 mg PO Q4HRS PRN #0 tab 05/30/16 Amoxicillin/Clavulanate Pot 875 mg PO BID #14 tab 06/08/16 [Augmentin 875 MG TAB (*)] Medical Decision Making - Data Points Laboratory Results: Laboratory Results 07/15/16 01:30 07/15/16 01:30 07/15/16 07/15/16 01:30 01:30 WBC 9.73 10^3/uL H 10^3/uL (3.80-9.50) RBC 3.33 10^6/uL L 10^6/uL (4.40-6.38) Hgb 11.7 g/dL L g/dL (13.7-17.5) Hct 34.5 % L % (40.0-51.0) MCV 103.6 fL H fL (81.5-99.8) MCH 35.1 pg H pg (27.9-34.1) MCHC 33.9 g/dL g/dL (32.4-36.7) RDW 13.9 % % (11.5-15.2) Plt Count 229 10^3/uL 10^3/uL (150-400) MPV 9.6 fL fL (8.7-11.7) Neut % (Auto) 61.2 % % (39.3-74.2) Lymph % (Auto) 29.7 % % (15.0-45.0) Cameron % (Auto) 6.8 % % (4.5-13.0) Eos % (Auto) 1.5 % % (0.6-7.6) Baso % (Auto) 0.6 % % (0.3-1.7) Nucleat RBC Rel Count 0.0 % % (0.0-0.2) Absolute Neuts (auto) 5.95 10^3/uL 10^3/uL (1.70-6.50) Absolute Lymphs (auto) 2.89 10^3/uL 10^3/uL (1.00-3.00) Absolute Monos (auto) 0.66 10^3/uL 10^3/uL (0.30-0.80) Absolute Eos (auto) 0.15 10^3/uL 10^3/uL (0.03-0.40) Absolute Basos (auto) 0.06 10^3/uL 10^3/uL (0.02-0.10) Absolute Nucleated RBC 0.00 10^3/uL 10^3/uL (0-0.01) Immature Gran % 0.2 % % (0.0-1.1) Immature Gran # 0.02 10^3/uL 10^3/uL (0.00-0.10) Sodium 136 mEq/L mEq/L (134-144) Potassium 3.1 mEq/L L mEq/L (3.5-5.2) Chloride 101 mEq/L mEq/L (97-110) Carbon Dioxide 29 mEq/l mEq/l (22-31) Anion Gap 6 mEq/L L mEq/L (8-16) BUN 5 mg/dL L mg/dL (7-23) Creatinine 0.8 mg/dL mg/dL (0.7-1.3) Estimated GFR > 60 Glucose 79 mg/dL mg/dL (70-100) Calcium 8.1 mg/dL L mg/dL (8.5-10.4) Ethyl Alcohol 101 mg/dL H mg/dL (0-10) Medications Given: Discontinued Medications Sodium Chloride (Ns) 1,000 mls @ 0 mls/hr IV ONCE ONE PRN Reason: Wide Open Stop: 07/15/16 01:24 Last Admin: 07/15/16 01:38 Dose: 1,000 mls Potassium Chloride (Klor Packets) 40 meq PO EDNOW ONE Stop: 07/15/16 02:22 Last Admin: 07/15/16 02:40 Dose: 40 meq Departure - Departure Disposition: Home, Routine, Self-Care Clinical Impression: Alcohol intoxication Qualifiers: Complication of substance-induced condition: uncomplicated Qualified Code(s): F10.120 - Alcohol abuse with intoxication, uncomplicated Condition: Good Instructions: Alcohol Intoxication (ED) Referrals: Patient,NotPresent [Unknown] - As per Instructions
[2016-07-15 01:45] LABS: % IMMATURE GRANULYOCYTES 0.2 % (0.0-1.1); ABSOLUTE IMMATURE GRANULOCYTES 0.02 10^3/uL (0.00-0.10); ADD DIFF? NO; ADD MORPH? NO; ADD SCAN? NO; ATYPICAL LYMPHOCYTE FLAG 0 (0-99); FRAGMENT RBC FLAG 0 (0-99); HEMATOCRIT 34.5 % (40.0-51.0); HEMOGLOBIN 11.7 g/dL (13.7-17.5); LEFT SHIFT FLG 0 (0-99); LIPEMIA HEMOLYSIS FLAG 90 (0-99); MEAN CELL HEMOGLOBIN 35.1 pg (27.9-34.1); MEAN CELL HEMOGLOBIN CONCENTR. 33.9 g/dL (32.4-36.7); MEAN CELL VOLUME 103.6 fL (81.5-99.8); MEAN PLATELET VOLUME 9.6 fL (8.7-11.7); PLATELET CLUMPS FLAG 10 (0-99); PLATELET COUNT 229 10^3/uL (150-400); RED BLOOD CELL COUNT 3.33 10^6/uL (4.40-6.38); RED CELL DISTRIBUTION WIDTH 13.9 % (11.5-15.2)
[2016-07-15 01:55] LABS: ANION GAP 6 mEq/L (8-16); CALCIUM 8.1 mg/dL (8.5-10.4); CARBON DIOXIDE 29 mEq/l (22-31); CHLORIDE 101 mEq/L (97-110); CREATININE 0.8 mg/dL (0.7-1.3); ETHANOL SERUM 101 mg/dL (0-10); GLOMERULAR FILTRATION RATE > 60; GLUCOSE 79 mg/dL (70-100); POTASSIUM 3.1 mEq/L (3.5-5.2); SODIUM 136 mEq/L (134-144)
[2016-07-15] MEDS ORDERED: POTASSIUM CL 20 MEQ PKT PO ONE (02:21)
[2016-07-15 05:43] VITALS: BP 118/74; PULSE 57; RESP 18; TEMP 97.3; O2SAT 92
== END 2016-07-15 06:35 | disposition home or self-care (01) ==
LOC: EDUNIT#
DX: F10.120 Alcohol abuse with intoxication, uncomplicated (principal); J44.9 Chronic obstructive pulmonary disease, unspecified; I10 Essential (primary) hypertension; F17.200 Nicotine dependence, unspecified, uncomplicated; Z85.46 Personal history of malignant neoplasm of prostate; Z85.830 Personal history of malignant neoplasm of bone
CPT/HCPCS: G0480

== ENCOUNTER 2017-04-02 11:33 | Inpatient (IN) | payer OTHER, MEDICARE ==
--- NOTE | 2017-04-02 11:56 | EDPHY ---
H & P Stated Complaint: fall R posterior rib pain Time Seen by Provider: 04/02/17 11:55 HPI/ROS: HPI: This is a 71-year-old male presents with Chief Complaint: fall Right posterior rib pain Location: Right lower posterior rib Quality: Pain Duration: Since 5:00 a.m., approximately 7 hr Signs and Symptoms: + chronic shortness of breath at rest, + chronic shortness of breath on exertion, + chronic cough, no chest pain, no palpitations, no lower extremity edema, no wheezing, no orthopnea, no paroxysmal nocturnal dyspnea, no fever, + injury/trauma, no hemoptysis Timing: Acute Severity: Moderate to severe Context: Patient has a history of COPD, on supplemental oxygen 2-3 L at night and several hours during the day, tobacco user, chronic alcoholic, chronic pain , history of bone cancer with mets from prostate presents via cab with complaints of right posterior lower rib pain worsened with palpation. Denies worsening with taking a deep breath. Patient reports that he is always chronically short of breath and does not feel any different at this time. Patient sleeps in his recliner. This morning he got out of his recliner around 5:00 a.m. and tripped over his feet, falling directly onto the table and hitting his right lower posterior ribs. He felt immediate pain, that has remained constant for the last 7 hr so patient came to the emergency room to evaluate for rib fracture. Patient denies dizziness/chest pain/shortness of breath/head injury/LOC/neck pain. Does not take any blood thinners. Gabapentin , Flexeril and naproxen have not relieved his pain symptoms. Lives at assisted living. Does not take any blood thinners. Modifying Factors: None Comment: ROS: see HPI Constitutional: No fever, no chills, no weight loss Eyes: No blurred vision Respiratory: No shortness of breath, no cough Cardiovascular: No chest pain, no palpitations, no lower extremity edema Gastrointestinal: No nausea, no vomiting, no diarrhea Genitourinary: No dysuria Extremities: No myalgias Neurologic: No weakness, no numbness Skin: No rashes Hematologic: No bruising, no bleeding MEDICAL/SURGICAL/SOCIAL HISTORY: Medical history: HX of Bone CA mets from prostate, HTN, life time smoker 3/4 ppd now, chronic etoh, narcs and benzos, chronic pain, Surgical history: Denies Social history: Retired. From assisted living. CONSTITUTIONAL: Elderly chronically ill-appearing male, pleasant talkative, nontoxic in appearance, smells heavily of tobacco, awake and alert, no obvious distress HEENT: Atraumatic and normocephalic, PERRL, EOMI. no globe entrapment, no raccoon eyes. no Beltre signs. Tympanic membranes clear. No tympanic membrane rupture. Nares patent; no septal hematoma. Oropharynx clear, no exudate and moist pink mucosa. No malocclusion. no dental trauma. Airway patent. No lymphadenopathy. NECK: supple, no midline tenderness, flexion 45 degrees, extension 45 degrees, right and left lateral flexion 45 degrees. No meningismus. Cardiovascular: Normal S1/S2, regular rate, regular rhythm, without murmur rub or gallop. PULMONARY/CHEST: Thoracic kyphoscoliosis noted. Moderate tenderness in the right lower posterior ribs; no ecchymosis, no crepitus. Coarseness bilaterally. Fair air movement. No accessory muscle usage. No tachypnea. ABDOMEN: Soft, nondistended, nontender, no ecchymosis, no rebound, no guarding , no peritoneal signs, no masses or organomegaly. No CVAT. PELVIC: no pain with rocking; bilateral hips flexion 125 degrees, extension 30 degrees, with no pain internal rotation and no pain external rotation. BACK: No midline tenderness, no paraspinous spasm, deep tendon reflexes 2/2, no pain with straight leg raise EXTREMITIES: 2/2 pulses, Right SHOULDER: Arc test abduction to 100, abduction to 45, horizontal flexion 100, horizontal extension to 45, deltoid strength 4/5. no Tenderness to palpation over AC joint. No clavicle deformity/ tenderness. no clubbing, no cyanosis or edema. NEUROLOGICAL: no focal neuro deficits. GCS 15. SKIN: Warm and dry, no erythema. no rash. Good capillary refill. Source: Patient Exam Limitations: No limitations - Personal History Current Tetanus/Diphtheria Vaccine: Unsure Current Tetanus Diphtheria and Acellular Pertussis (TDAP): Unsure - Medical/Surgical History Hx Asthma: No Hx Chronic Respiratory Disease: Yes Hx Diabetes: No Hx Cardiac Disease: Yes Hx Renal Disease: No Hx Cirrhosis: No Hx Alcoholism: Yes Hx HIV/AIDS: No Hx Splenectomy or Spleen Trauma: No Other PMH: HX of Bone CA mets from prostate, HTN, is a life time smoker 3/4 ppd now , chronic etoh, narcs and benzos, chronic pain, - Social History Smoking Status: Heavy smoker Constitutional: Initial Vital Signs Temperature (C) 36.9 C 04/02/17 11:43 Heart Rate 80 04/02/17 11:43 Respiratory Rate 20 04/02/17 11:43 Blood Pressure 147/89 H 04/02/17 11:43 O2 Sat (%) 89 L 04/02/17 11:43 O2 Delivery Mode Room Air Allergies/Adverse Reactions: Sulfa (Sulfonamide Antibiotics) [Sulfa(Sulfonamide Antibiotics)] Allergy ( Verified 04/02/17 11:37) Home Medications: Medication Instructions Recorded Albuterol [Proventil Inhaler HFA 2 puffs IH Q4H PRN 05/29/16 (*)] Cyclobenzaprine [Flexeril 10 MG 10 mg PO TID PRN 05/29/16 (*)] Gabapentin [Neurontin 300 MG (*)] 600 mg PO TID 05/29/16 Naproxen Sodium [Aleve 220 MG (*)] 220 mg PO QID PRN 05/29/16 Omeprazole 40 mg PO DAILY 05/29/16 Temazepam [Restoril 15 MG (*)] 30 mg PO HS PRN 05/29/16 Acetaminophen [Tylenol 325mg (*)] 650 mg PO Q4HRS PRN #0 tab 05/30/16 Benadryl 04/02/17 Lasix 04/02/17 Lidocaine 5% 04/02/17 Ms Contin 04/02/17 Oxycodone HCl 04/02/17 Potassium Chloride 04/02/17 Sennosides 04/02/17 Simethicone 04/02/17 Medical Decision Making - Diagnostics Imaging Results: Imaging Impressions Ribs w/Chest X-Ray 04/02/17 11:57 Impression: 1. Acute fractures suspected associated with the posterior lateral right seventh , eighth, ninth ribs. 2. Fracture distal head left clavicle that has developed since the prior chest x -ray study from June,. Clinical correlation recommended with respect to trauma in this location. 3. Old healed fractures bilaterally involving the ribs. 4. Poor inspiration with bibasilar subsegmental atelectasis suspected. Underlying interstitial fibrosis is also possible. ED Course/Re-evaluation: Chest x-ray and rib series, labs and IV medications ordered ordered Given IV morphine and topical Lidoderm patch. O2 sats 86-89% on room air upon arrival. Patient is afebrile; no systemic signs. Doubt infectious etiology. Based on the Day head CT and cervical CT scan ruling: Imaging not indicated. Fall is accidental in nature. Chest x-ray and rib x-ray show multiple rib fractures on the right; posterior lateral right seventh, eighth, ninth ribs. No signs of pneumothorax. 2. Fracture distal head left clavicle; unsure if acute or subacute; patient is asymptomatic; placed in right sling. Patient has lung disease/oxygen dependent/multiple risk factors/hypoxia, will need admission for close monitoring and oxygen therapy. 1310: ED decision to consult for admission. Spoke with hospitalist as well as trauma. Dr. Jenkins will admit patient and Dr. Harris consult. This patient was seen under the supervision of my secondary supervising physician. I evaluated care for this patient independently. Discussed this patient with Dr. Lizarraga who did not see the patient. Patient's presentation, labs/imaging, treatment and plan of care were discussed with secondary supervising physician. Differential Diagnosis: Differential diagnosis includes but is not limited to rib fracture, rib contusion, pneumothorax, COPD, pneumonia. - Data Points Medications Given: Miscellaneous Information (Patch Removal) 1 ea TD [id number] TERRY Stop: 09/29/17 20:59 Last Admin: 04/02/17 12:49 Dose: Not Given Discontinued Medications Lidocaine (Lidoderm 5%) 1 ea TD EDNOW ONE Stop: 04/02/17 12:03 Last Admin: 04/02/17 12:17 Dose: 1 ea Departure - Departure Disposition: [facility] Inpatient Acute Clinical Impression: Hypoxia Multiple fractures of ribs of right side Qualifiers: Encounter type: initial encounter Fracture type: closed Qualified Code(s): S22.41XA - Multiple fractures of ribs, right side, initial encounter for closed fracture Accidental fall from chair Qualifiers: Encounter type: initial encounter Qualified Code(s): W07.XXXA - Fall from chair , initial encounter Closed right clavicular fracture Qualifiers: Encounter type: initial encounter Clavicle location: sternal end Fracture alignment: nondisplaced Qualified Code(s): S42.017A - Nondisplaced fracture of sternal end of right clavicle, initial encounter for closed fracture Condition: Fair
[2017-04-02] MEDS ORDERED: LIDOCAINE 5% 1 EA PATCH TD ONE (12:02)
[2017-04-02] MEDS: PATCH REMOVAL 1 EA PATCH TD SCH (12:49)
[2017-04-02] MEDS ORDERED: ACETAMINOPHEN 325 MG TAB PO PRN (13:18)
[2017-04-02] MEDS ORDERED: ONDANSETRON 4 MG/2 ML VIAL IVP PRN (13:18)
[2017-04-02 13:59] LABS: PLATELET COUNT 248 10^3/uL (150-400)
[2017-04-02] MEDS ORDERED: ALBUTEROL 60 PUFFS/8 GM MDI IH PRN (14:49)
[2017-04-02] MEDS ORDERED: CYCLOBENZAPRINE 10 MG TAB PO PRN (14:49)
[2017-04-02] MEDS ORDERED: SIMETHICONE 125 MG PO PRN (14:49)
[2017-04-02] MEDS ORDERED: SIMETHICONE 80 MG TAB CHEW PO PRN (14:57)
--- NOTE | 2017-04-02 15:58 | GHP ---
[f rep st] HISTORY AND PHYSICAL DATE OF ADMISSION: 04/02/2017 CHIEF COMPLAINT: Rib fracture, difficulty breathing. HISTORY OF PRESENT ILLNESS: A 71-year-old male with history of COPD, chronic hypoxemic respiratory failure on 4 L, and chronic opioid dependence, who presented with right posterior rib pain after a fall. He said he fell asleep in his recliner last night and tried to put down the foot rest and slipped, landing on his right side. He felt immediate pain that has been constant, lasting approximately 5-6 hours, and came to the emergency room. He denies any dizziness or chest pain. He is breathing more shallow due to the pain. He did not have loss of consciousness or hit his head. He does endorse having 1-2 alcoholic drinks the night before. He felt faintish last night as he did not eat much yesterday because he did not have much of an appetite. Denies fevers, chills, or sweats. No nausea, vomiting, or diarrhea. No cough. REVIEW OF SYSTEMS: I completed a 10-point review of systems, negative except as noted in HPI. PAST MEDICAL HISTORY: 1. Chronic hypoxemic respiratory failure, on 4 L oxygen. 2. Alcohol dependence. 3. Chronic pain with opioid dependency. 4. History of aspiration pneumonia. 5. History of prostate cancer, status post Lupron. 6. COPD. 7. History of prior suicide ideation and attempt. 8. Cervical spine stenosis. PAST SURGICAL HISTORY: Appendectomy. FAMILY HISTORY: Cousin with prostate cancer. An uncle, aunt, and grandpa with an unknown type of cancer. SOCIAL HISTORY: Lives at [facility]. Smokes tobacco, a 52 pack/ year history, now smoking 12-15 a day. Alcohol: At least 2-3 alcoholic beverages a day. ALLERGIES: Sulfas. HOME MEDICATIONS: Simethicone, oxycodone 15 mg q.4 hours p.r.n., MS Contin 15 mg b.i.d., potassium 20meq p.o. daily, Restoril 30 mg q.h.s. p.r.n., omeprazole 40 mg daily, Lidoderm patch, gabapentin 900 mg t.i.d., Lasix 20 mg daily, Flexeril 10 mg p.r.n., albuterol 2 puffs q.4 p.r.n. PHYSICAL EXAMINATION: VITAL SIGNS: Temperature 36.8, blood pressure 166/93, heart rate in the 70s, respiration 20, 95% on 5 L. GENERAL: Sitting up in bed , in no acute distress, smiling. HEENT: PERRLA. EOMI. Oropharynx clear. Mildly dry mucous membranes. CV: Regular rate and rhythm. No murmurs, gallops , or rubs. LUNGS: Diminished but no wheezing or crackles. Tenderness over posterior right ribs. ABDOMEN: Soft, nontender. MUSCULOSKELETAL: Moving all 4 extremities. NEURO: 2-12 intact. PSYCH: Alert and oriented x3. LABS: WBC is 10, hemoglobin 14, hematocrit 41, platelets 248. Sodium 142, potassium 4.3, chloride 101, creatinine 0.7, glucose 106, calcium 9.9. Chest x-ray: Acute fractures posterolateral right 7th, 8th, and 9th ribs. Fracture distal head of left clavicle, new from June 2016. Old healed fractures bilaterally involving the ribs. ASSESSMENT AND PLAN: 1. Acute rib fractures: Secondary to fall. This may have been in the setting of alcohol intoxication. He is currently stable on his home oxygen needs. Treat acutely with IV Toradol; no increase in narcotics. He can trial a heating pad and incentive spirometry. 2. Chronic pain with chronic opioid dependency. We will resume his home medication dose. 3. History of prostate cancer, status post Lupron. 4. Chronic obstructive pulmonary disease. No evidence of exacerbation. 5. Chronic hypoxemic respiratory failure, stable on 4-5 L. Continue albuterol. 6. Cervical spinal stenosis. Resume home medications. Lidoderm patch. 7. Tobacco use: nicotine patch 8. DVT prophylaxis: SCDs. 9. Alcohol dependence. We will provide vodka b.i.d. to prevent alcohol withdrawal. No evidence of withdrawal at this point.109. 10. Diet regular. DISPOSITION: Patient warrants observation admission given acute rib fractures and pain requiring IV Toradol, incentive spirometry, and pulse oximetry. /[id number]/MODL MTDD
[2017-04-02] MEDS: GABAPENTIN 300 MG CAP PO SCH ×2 (16:27→20:27)
[2017-04-02] MEDS: oxyCODONE IR 15 MG TAB PO PRN ×2 (17:17→22:09)
[2017-04-02] MEDS: KETOROLAC 15 MG/1 ML SDV IVP SCH ×2 (17:18→23:40)
[2017-04-02] MEDS: VODKA 50 ML BOTTLE PO SCH (17:46)
[2017-04-02] MEDS: morphINE SR 15 MG TAB PO SCH (20:27)
[2017-04-02] MEDS: NICOTINE 14 MG/24 HR PATCH TD SCH (20:27)
--- NOTE | 2017-04-02 21:53 | SOAPPROG ---
SOAP Progress Note Assessment/Plan: Assessment: 31-YEAR-OLD MALE WHO FELL SUSTAINING MULTIPLE RIGHT RIB FRACTURES CHEST X-RAY REVEALS NO PNEUMOTHORAX OR HEMOTHORAX PATIENT ALSO COMPLAINS OF SOME RIGHT SHOULDER PAIN HE HAS A HISTORY OF COPD AND ALCOHOL ABUSE HEENT NONICTERIC, PERRLA, A SUPPLE NECK CHEST CLEAR AND SYMMETRIC, TENDERNESS OVER HIS RIGHT LATERAL RIBS COR REGULAR RHYTHM ABDOMEN SOFT NONTENDER EXTREMITIES FULL RANGE OF MOTION FULL PULSES IMPRESSION: MULTIPLE RIGHT RIB FRACTURES Plan: PULMONARY TOILET/FOLLOW-UP CHEST X-RAY 04/02/17 21:50 Objective: Vital Signs Temp Pulse Resp BP Pulse Ox 37.1 C 73 18 134/70 H 84 L 04/02/17 20:00 04/02/17 20:00 04/02/17 20:00 04/02/17 20:00 04/02/17 20:00 Laboratory Results 04/02/17 13:35 04/02/17 13:35 ICD10 Worksheet Patient Problems: Problems Problem Status Onset Accidental fall from chair Acute Closed right clavicular fracture Acute Hypoxia Acute Multiple fractures of ribs of right side Acute Acute encephalopathy Acute Acute hyperactive alcohol withdrawal delirium Acute Altered mental status Acute Aspiration into airway Acute Chronic pain Acute Dehydration Acute Failure to thrive Acute Generalized weakness Acute History of fall Acute Opiate dependence, continuous Acute Palliative care encounter Acute Pancreatitis Acute Pneumonia Acute Pneumonia Acute Polypharmacy Acute Polysubstance abuse Acute Polysubstance dependence including opioid drug with daily use Acute Recurrent falls Acute Rib fractures Acute Thoracic compression fracture Acute
[2017-04-02] MEDS: ONDANSETRON DISINTEGRATING 4 MG TAB PO PRN (22:09)
[2017-04-02] MEDS: TEMAZEPAM 15 MG CAP PO PRN (23:40)
[2017-04-03] MEDS: oxyCODONE IR 15 MG TAB PO PRN ×4 (05:24→23:29)
[2017-04-03] MEDS: KETOROLAC 15 MG/1 ML SDV IVP SCH ×4 (05:24→23:28)
--- NOTE | 2017-04-03 08:39 | TRAUMAPN ---
Assessment/Plan: 71[facility] f[facility] TERTIARY EXAM Neuro: Alert, oriented, nonfocal. Pain does appear well controlled with current medical management. Pulm: On supplemental oxygen, where supplemental oxygen at home. Lungs are clear with minimal expiratory wheezes on the right. No crepitus. Patient currently pulling over 2000 on his spirometer. Discussed the need for continued pulmonary toilet CV: Hemodynamically stable Abdomen: Soft nondistended nontender. Tolerating a regular diet. Renal: Voiding Heme: Stable Id: Afebrile Ortho: Rib fractures as above, no additional fractures identified today Dispo: Pain control, medical management. Anticipate home in the next 24 hours Subjective: Alert, c/o back pain. Objective: Vital Signs Temp Pulse Resp BP Pulse Ox 36.4 C 63 18 103/60 9 L 04/03/17 08:00 04/03/17 08:00 04/03/17 08:00 04/03/17 08:00 04/03/17 08:00 Laboratory Results 04/02/17 13:35 04/03/17 04:26
[2017-04-03] MEDS: NICOTINE 14 MG/24 HR PATCH TD SCH (08:59)
[2017-04-03] MEDS: POTASSIUM CL 20 MEQ TAB PO SCH (09:00)
[2017-04-03] MEDS ORDERED: NON-FORMULARY NEW DRUG (Omeprazole [Omeprazole] 40 MG) PO SCH (09:00)
[2017-04-03] MEDS: GABAPENTIN 300 MG CAP PO SCH ×3 (09:00→21:10)
[2017-04-03] MEDS: LIDOCAINE 5% 1 EA PATCH TD SCH (09:02)
[2017-04-03] MEDS: FUROSEMIDE 20 MG TAB PO SCH (09:02)
[2017-04-03] MEDS: morphINE SR 15 MG TAB PO SCH ×2 (09:02→23:30)
[2017-04-03] MEDS: PANTOPRAZOLE SODIUM 40 MG TAB PO SCH (09:02)
[2017-04-03] MEDS: ENOXAPARIN 40 MG/0.4 ML SYR SC SCH (09:02)
--- NOTE | 2017-04-03 10:21 | HOSPPROG ---
Hospitalist Progress Note Assessment/Plan: New pt encounter 71 yo male with hx of COPD, chronic resp failure on 4L baseline, admitted following fall with subsequent multiple right sided rib fractures #COPD with mild exacerbation #chronic resp failure at baseline #s/p Fall #Acute Right sided rib fracture, no signs of pneumothorax or Hemothorax -Trauma is following #Hx of alcohol dependance #Tobacco abuse disorder #DVT proph: Lovenox Plan: -Start Prednisone -Pain mgmt -Scheduled Vodka -Nicotine patch -home meds -f/u CXR Dispo: If clinically stable, anticipate d/c soon, possibly tomorrow Subjective: + cough, + wheeze, no pedal edema. Afebrile. Objective: Vital Signs Temp Pulse Resp BP Pulse Ox 36.4 C 63 18 103/60 9 L 04/03/17 08:00 04/03/17 08:00 04/03/17 08:00 04/03/17 08:00 04/03/17 08:00 Laboratory Results 04/02/17 13:35 04/03/17 04:26 - Physical Exam Constitutional: no apparent distress Eyes: PERRL, EOMI Ears, Nose, Mouth, Throat: moist mucous membranes, hearing normal Cardiovascular: regular rate and rhythym, No edema Respiratory: reduced air movement, expiratory wheeze Gastrointestinal: normoactive bowel sounds, soft, non-tender abdomen Genitourinary: no bladder fullness Skin: warm Musculoskeletal: full muscle strength Neurologic: AAOx3 Psychiatric: interacting appropriately, not anxious, not encephalopathic Lymph, Heme, Immunologic: No petechiae ICD10 Worksheet Patient Problems: Problems Problem Status Onset Accidental fall from chair Acute Closed right clavicular fracture Acute Hypoxia Acute Multiple fractures of ribs of right side Acute Acute encephalopathy Acute Acute hyperactive alcohol withdrawal delirium Acute Altered mental status Acute Aspiration into airway Acute Chronic pain Acute Dehydration Acute Failure to thrive Acute Generalized weakness Acute History of fall Acute Opiate dependence, continuous Acute Palliative care encounter Acute Pancreatitis Acute Pneumonia Acute Pneumonia Acute Polypharmacy Acute Polysubstance abuse Acute Polysubstance dependence including opioid drug with daily use Acute Recurrent falls Acute Rib fractures Acute Thoracic compression fracture Acute
[2017-04-03] MEDS: VODKA 50 ML BOTTLE PO SCH ×2 (11:44→18:17)
[2017-04-03] MEDS: ONDANSETRON DISINTEGRATING 4 MG TAB PO PRN (11:45)
[2017-04-03] MEDS: predniSONE 20 MG TAB PO SCH (11:45)
--- NOTE | 2017-04-03 15:21 | ASMTCMCOM ---
CM Note CM Note Notes: Patient admitted for rib fractures that resulted from a fall. He is also having an acute on chronic COPD exacerbation. He is O2 dependent at baseline. Patient lives at [facility]. Per PT notes, he took a cab to the hospital. PT has cleared him to go back to [facility]. I called [facility] and left a message informing them of his likely discharge tomorrow. CM available for any dishcharge needs. Date Signed: 04/03/2017 03:21 PM Electronically Signed By:Naomi Navarro RN
[2017-04-03] MEDS ORDERED: BISMUTH SUBSALICYLATE 262 MG CHEWABLE TAB PO PRN (16:49)
--- NOTE | 2017-04-03 17:31 | PDMN ---
Medical Necessity Medical necessity: change to IP; los>2mn for multiple ribs fx's r/t fall, COPD w /mild exacerbation; requires initiate of Prednisone, pain control; comorbid chronic resp failure on O2 4L @ baseline, and etoh dependence; per order and progress note 04/03/17
[2017-04-03] MEDS: TEMAZEPAM 15 MG CAP PO PRN (23:29)
[2017-04-03] MEDS: PATCH REMOVAL 1 EA PATCH TD SCH (23:31)
[2017-04-04] MEDS: KETOROLAC 15 MG/1 ML SDV IVP SCH ×2 (06:06→12:11)
[2017-04-04 07:25] VITALS: BP 125/71; PULSE 66; RESP 12; TEMP 97.8
[2017-04-04] MEDS: predniSONE 20 MG TAB PO SCH (08:28)
[2017-04-04] MEDS: GABAPENTIN 300 MG CAP PO SCH (08:28)
[2017-04-04] MEDS: FUROSEMIDE 20 MG TAB PO SCH (08:29)
[2017-04-04] MEDS: PANTOPRAZOLE SODIUM 40 MG TAB PO SCH (08:29)
[2017-04-04] MEDS: morphINE SR 15 MG TAB PO SCH (08:29)
[2017-04-04] MEDS: POTASSIUM CL 20 MEQ TAB PO SCH (08:29)
[2017-04-04] MEDS: ENOXAPARIN 40 MG/0.4 ML SYR SC SCH (08:30)
[2017-04-04] MEDS: NICOTINE 14 MG/24 HR PATCH TD SCH (08:30)
[2017-04-04] MEDS: LIDOCAINE 5% 1 EA PATCH TD SCH (08:30)
--- NOTE | 2017-04-04 08:36 | TRAUMAPN ---
Assessment/Plan: 71yo M c MMP s/p mech fall c R 7-9 rib fx - looking much better today, pain appears better controlled - Lung clear. Is>2000cc - ok with dc today per IM Subjective: Doing well, pain appears better controlled today Objective: Vital Signs Temp Pulse Resp BP Pulse Ox 36.6 C 66 12 125/71 H 90 L 04/04/17 07:22 04/04/17 07:22 04/04/17 07:22 04/04/17 07:22 04/04/17 07:22
--- NOTE | 2017-04-04 09:59 | PDDCSUM ---
Discharge Summary Discharge Summary: 71 yo male with hx of COPD, chronic resp failure on 4L baseline, admitted following fall with subsequent multiple right sided rib fractures. Had mild COPD -E, treated with steroid burst. Pain is well controlled. Breathing is at baseline. Cough has improved. Ready for D/C Consultants: Trauma DDX: #COPD with mild exacerbation #chronic resp failure at baseline #s/p Fall #Acute Right sided rib fracture, no signs of pneumothorax or Hemothorax -Trauma is following #Hx of alcohol dependance #Tobacco abuse disorder #DVT proph: Lovenox Exam: ON 4l OTHERWISE VSS NAD AAOX3 RRR MILD EXP WHEEZE S/NT/ND NO LE EDEMA MEDS: SEE MED REC F/U: WITH PCP NEXT WEEK TOTAL TIME SPENT ON D/C IS 35 MINS
--- NOTE | 2017-04-04 10:17 | PDIAF ---
- Diagnosis Diagnosis: rib fractures Code Status: Do Not Resuscitate - Medication Management Discharge Medications: Medications to Continue on Transfer Albuterol [Proventil Inhaler HFA (*)] 2 puffs IH Q4H PRN 05/29/16 [Last Taken ] Cyclobenzaprine [Flexeril 10 MG (*)] 10 mg PO TID PRN 05/29/16 [Last Taken 06/05] Gabapentin [Neurontin 300 MG (*)] 900 mg PO TID 05/29/16 [Last Taken 04/02/17] Omeprazole 40 mg PO DAILY 05/29/16 [Last Taken 04/02/17] Temazepam [Restoril 15 MG (*)] 30 mg PO HS PRN 05/29/16 [Last Taken 04/01/17] Furosemide [Lasix 20 MG (*)] 20 mg PO DAILY 04/02/17 [Last Taken 04/02/17] Potassium Cl [Klor-Con 20 meq (*)] 20 meq PO DAILY 04/02/17 [Last Taken 04/02/17 ] Simethicone 125 mg PO Q6HRS PRN 04/02/17 [Last Taken 04/02/17] morphINE SR [Ms Contin/Oramorph 15 mg (*)] 15 mg PO BID 04/02/17 [Last Taken 06/15] Lidocaine 5% [Lidoderm 5% Patch (*)] 1 ea TD DAILY #10 patch 04/04/17 [Last Taken Unknown] oxyCODONE IR [Oxycodone Ir (*)] 15 mg PO Q4HRS PRN #30 tab 04/04/17 [Last Taken Unknown] predniSONE 40 mg PO DAILY #8 tablet 04/04/17 [Last Taken Unknown] Discharge Medications: Refer to the Discharge Home Medication list for PRN reason. - Orders Services needed: Home Care, Physical Therapy, Occupational Therapy Home Care Face to Face: I certify that this patient was under my care and that I had the required [id number] encounter meeting the encounter requirements on the discharge day. My findings support the fact that the patient is homebound as defined in Home Care Face to Face Continued: CMS Chapter 7 Medicare Benefits Manual 30.1.1 , The condition of the patient is such that there exists a normal inability to leave home and consequently, leaving home would require a considerable and taxing effort. Isolation Type: None Diet Recommendation: no restrictions on diet Diet Texture: Regular Texture Diet - Follow Up Care Current Providers and Referrals: NONE *PRIMARY CARE P,. [Primary Care Provider] -
--- NOTE | 2017-04-04 10:19 | PDHOMEO2F ---
Home Oxygen Face to Face Home Orders: I certify that a physician or a nurse practitioner or physician's drafter assistant has had a [id number] encounter with this patient on the date of this order due to the diagnosis listed, which relates to the primary reason the patient requires home oxygen. Alternative treatments have been tried, or considered, and deemed ineffective. It is anticipated that supplemental oxygen will result in improvement with treatment. Home oxygen qualifying diagnosis: copd SpO2 on room air (%): 88% Frequency of home oxygen needed: continuous Home oxygen liters per minute: 4 Home oxygen delivery device: nasal cannula Concentrator: Yes E-tanks for mobility and back up: Yes If ordering portable O2, is the patient mobile in the home?: Yes I certify that, based on these findings, the home oxygen is medically necessary for this patient for the following length of time. Length of time home oxygen needed: 99 years
[2017-04-04] MEDS: oxyCODONE IR 15 MG TAB PO PRN (10:44)
[2017-04-04 12:07] VITALS: O2SAT 86
[2017-04-04] MEDS: VODKA 50 ML BOTTLE PO SCH (12:13)
--- NOTE | 2017-04-04 15:01 | PDHOMEO2F ---
Home Oxygen Face to Face Home Orders: I certify that a physician or a nurse practitioner or physician's care assistant has had a [id number] encounter with this patient on the date of this order due to the diagnosis listed, which relates to the primary reason the patient requires home oxygen. Alternative treatments have been tried, or considered, and deemed ineffective. It is anticipated that supplemental oxygen will result in improvement with treatment. Home oxygen qualifying diagnosis: copd SpO2 on room air (%): 86 Frequency of home oxygen needed: with activity, continuous, during sleep Home oxygen liters per minute: 4 Home oxygen delivery device: nasal cannula Concentrator: Yes E-tanks for mobility and back up: Yes If ordering portable O2, is the patient mobile in the home?: Yes I certify that, based on these findings, the home oxygen is medically necessary for this patient for the following length of time. Length of time home oxygen needed: 99 years
--- NOTE | 2017-04-04 15:08 | ASDISCHSUM ---
Discharge Information Plan Status:Assisted Living Medically Cleared to Leave: Discharge Date:04/04/2017 02:59 PM CM D/C Disposition:Assisted Living ADT D/C Disposition:Intermediate Facility Projected Discharge Date:04/04/2017 11:00 AM Transportation at D/C:Taxicab Discharge Delay Reason: Follow-Up Date:04/04/2017 11:00 AM Discharge Slot: Final Diagnosis: Placement Information Referral Type:*Home Health Care Services Referral ID:[id number] Provider Name: Address 1: Phone Number: Address 2: Fax Number: City: Selection Factors: State: Referral Type:Assisted Living Residence Referral ID:[id number] [place] Name:[facility] Address 1:[address] [place] [address] Address 2: City:[place] Selection Factors: State:[place] Patient Contact Information Contact Name:BLAKE Relationship:Sister Address:[address] Work Phone: City:[place] Alternate Phone: State/Zip Code:[place] [address] Email: Financial Information Financial Class: Primary Plan Desc:MEDICARE INPATIENT Primary Plan Number:[id number] Secondary Plan Desc:[employer]/MDR SUPPLEMENT Secondary Plan Number:[id number] Assessment Information LACE LACE Acuity / Level of Care Answers: Was the patient admitted to hospital via the emergency department? Yes: Comorbidities - select Answers: Chronic pulmonary disease all that apply Metastatic solid tumor Emergency dept visits in Answers: 1 last 6 months Score: 12 Date Signed: 04/02/2017 01:32 PM Electronically Signed By:Rhonda Olson RN [facility] CM Progress Note CM Note CM Note Notes: Patient admitted for rib fractures that resulted from a fall. He is also having an acute on chronic COPD exacerbation. He is O2 dependent at baseline. Patient lives at [facility]. Per PT notes, he took a cab to the hospital. PT has cleared him to go back to [facility]. I called [facility] and left a message informing them of his likely discharge tomorrow. CM available for any dishcharge needs. Date Signed: 04/03/2017 03:21 PM Electronically Signed By:Naomi Navarro RN Case Management Discharge Plan Note Case Management Discharge Discharge Order Complete? Answers: Yes Patient to Obtain Answers: Independently Medications Transportation Arranged Answers: Taxi - Self Pay Faxed Final Orders Answers: Yes Discharge Comments Notes: Patient discharged back to his [facility], [facility]. He has been set up with [facility] PT/OT and RT arranged home O2 with [employer]. GLADYS Chi called report to Abbie at the [facility]. Date Signed: 04/04/2017 02:17 PM Electronically Signed By:Naomi Navarro RN Intervention Information Intervention Type:*ALETHEA-Signed Date of Service:04/03/2017 11:59 AM Patient Type:Observation Staff Member:Jing Waldron Hours: Discipline: Severity: Comment:
--- NOTE | 2017-04-06 01:23 | GCON ---
[f rep st] CONSULTATION DATE OF CONSULTATION: 04/02/2017 HISTORY OF PRESENT ILLNESS: The patient is a 71-year-old male who had a fall at home sustaining mult iple right rib fractures. Chest x-ray at that time reveals no pneumothorax or hemothorax. He is com plaining of some right chest pain as well as right shoulder pain. X-rays reveal multiple right rib f ractures which are minimally displaced. REVIEW OF SYSTEMS: Reveals no major medical problems unrelated to the HPI and past history. He has also had multiple previous falls with rib fractures over the last few years. MEDICATIONS: Include omeprazole, Restoril, Aleve, Lasix, Benadryl, Lidoderm patches, morphine sulfat e Contin, oxycodone, simethicone, gabapentin, Flexeril, and albuterol. ALLERGIES: Sulfa. PAST MEDICAL HISTORY: Includes prostate cancer with bone METS, hypertension, COPD, chronic pain issu es, chronic ETOH issues, and long-time smoking. PHYSICAL EXAMINATION: GENERAL: Reveals an alert, cooperative 71-year-old male, who looks older than the stated age. HEAD AND NECK: Reveals no evidence of trauma. Pupils are equal and reactive. The re are no oral lesions. NECK: Supple and nontender. CHEST: Reveals symmetrical breath sounds. He is quite tender over his right lateral 7th, 8th, and 9th ribs. His clavicles are nontender despite the x-ray report of a possible distal clavicle fracture. CARDIAC: Reveals a regular rhythm without murmurs. ABDOMEN: Soft and nontender. EXTREMITIES: Benign with full range of motion, full pulses. Clavicles are specifically not tender. IMPRESSION: 1. Multiple right rib fractures after a fall. He seems to be doing quite well from that. We will c ontinue with some respiratory treatments and pulmonary hygiene. 2. Questionable clavicle abnormality, although it is not clinically tender, and I do not suspect any clavicle fracture of note. /[id number]/MODL
== END 2017-04-04 14:59 | DRG 184 ==
LOC: F3E 14:26 → OBSVTOIN 04-03 16:42
PROVIDERS: ADMIT Internal Medicine; ATTEND Family Medicine
DX: S22.41XA Multiple fractures of ribs, right side, initial encounter for closed fracture (principal); W07.XXXA Fall from chair, initial encounter; Y92.009 Unspecified place in unspecified non-institutional (private) residence as the place of occurrence of the external cause; J44.1 Chronic obstructive pulmonary disease with (acute) exacerbation; J96.11 Chronic respiratory failure with hypoxia; F10.20 Alcohol dependence, uncomplicated; G89.29 Other chronic pain; F11.20 Opioid dependence, uncomplicated; C79.51 Secondary malignant neoplasm of bone; M48.02 Spinal stenosis, cervical region; F17.210 Nicotine dependence, cigarettes, uncomplicated; Z87.01 Personal history of pneumonia (recurrent); Z66 Do not resuscitate; Z99.81 Dependence on supplemental oxygen; Z85.46 Personal history of malignant neoplasm of prostate
CPT/HCPCS: 97110-GP; 97116-GP; 97161-GP; 97165-GO; G0378; G8978-GP-CI; G8979-GP-CI; G8980-GP-CI; G8987-GO-CI; G8988-GO-CI; G8989-GO-CI; J1650; J1885; J7512

== ENCOUNTER 2017-06-05 20:10 | Inpatient (IN) | payer OTHER, MEDICARE, MEDICAID ==
[2017-06-05] MEDS ORDERED: KETAMINE 200 MG/20 ML VIAL IVP ONE (21:41)
[2017-06-05] MEDS ORDERED: NS 1,000 ML IV ONE (21:42)
--- NOTE | 2017-06-05 21:53 | EDPHY ---
H & P Stated Complaint: Bilateral LE Pain x 4 days Time Seen by Provider: 06/05/17 21:20 HPI/ROS: CHIEF COMPLAINT: Bilateral thigh pain HISTORY OF PRESENT ILLNESS: The patient is a 71-year-old man who comes to the emergency department from [facility] complaining of bilateral leg pain in his thighs. He states that his muscles seem weak and atrophied. He has a history of prostate cancer and according to previous records has bony metastasis but no details on which bones that I can find. The patient denies this and states that he never had bony metastasis and that his initial prostate cancer was makes diagnosed as bone cancer. He is now in remission. He also has a history of COPD on 4 L of oxygen, alcoholism, chronic pain with opiate dependency, cervical spine stenosis and degenerative disc disease in his low back. He denies bowel or bladder abnormalities. He denies numbness or paresthesias. No fevers or recent trauma. He has been admitted multiple times for falls while intoxicated. He denies any recent falls. He states that his pain began about 5 days ago. He called the ambulance on Friday but decided not to come at that point. REVIEW OF SYSTEMS: Constitutional: denies: chills, fever, recent illness, recent injury EENTM: denies: blurred vision, double vision, nose congestion Respiratory: denies: cough, shortness of breath Cardiac: denies: chest pain, irregular heart rate, lightheadedness, palpitations Gastrointestinal/Abdominal: denies: abdominal pain, diarrhea, nausea, vomiting, blood streaked stools Genitourinary: denies: dysuria, frequency, hematuria, pain Musculoskeletal: See HPI Skin: denies: lesions, rash, jaundice, bruising Neurological: denies: headache, numbness, paresthesia, tingling, dizziness, weakness Hematologic/Lymphatic: denies: blood clots, easy bleeding, easy bruising Immunologic/allergic: denies: HIV/AIDS, transplant EXAM: GENERAL: Well-appearing, well-nourished and in no acute distress. HEAD: Atraumatic, normocephalic. EYES: Pupils equal round and reactive to light, extraocular movements intact, sclera anicteric, conjunctiva are normal. ENT: TMs normal, nares patent, oropharynx clear without exudates. Moist mucous membranes. NECK: Normal range of motion, supple without lymphadenopathy or JVD. LUNGS: Breath sounds clear to auscultation bilaterally and equal. No wheezes rales or rhonchi. HEART: Regular rate and rhythm without murmurs, rubs or gallops. ABDOMEN: Soft, nontender, normoactive bowel sounds. No guarding, no rebound. No masses appreciated. BACK: Mild low back pain, no step-offs or tenderness. No CVA pain EXTREMITIES: Patient complains of pain to both thighs right greater than left. Able to lift left leg off the bed but not right. NEUROLOGICAL: Cranial nerves II through XII grossly intact. Normal speech, he is able to ambulate but with pain. 3/5 strength in right leg. normal sensation PSYCH: Normal mood, normal affect. SKIN: Warm, dry, normal turgor, no visible rashes or lesions. Source: Patient Exam Limitations: No limitations - Personal History Current Tetanus Diphtheria and Acellular Pertussis (TDAP): Yes - Medical/Surgical History Hx Asthma: No Hx Chronic Respiratory Disease: Yes Hx Diabetes: No Hx Cardiac Disease: Yes Hx Renal Disease: No Hx Cirrhosis: No Hx Alcoholism: Yes Hx HIV/AIDS: No Hx Splenectomy or Spleen Trauma: No Other PMH: Prostate cancer, HTN, is a life time smoker 3/4 ppd now , chronic etoh, narcs and benzos, chronic pain, pancratitis, etoh abuse, COPD - Family History Significant Family History: No pertinent family hx - Social History Smoking Status: Heavy smoker Alcohol Use: Sober Drug Use: None Constitutional: Initial Vital Signs Temperature (C) 37 C 06/05/17 20:12 Heart Rate 74 06/05/17 20:12 Respiratory Rate 18 06/05/17 20:12 Blood Pressure 138/76 H 06/05/17 20:12 O2 Sat (%) 93 06/05/17 20:12 O2 Delivery Mode Nasal Cannula O2 (L/minute) 4 Allergies/Adverse Reactions: Sulfa (Sulfonamide Antibiotics) [Sulfa(Sulfonamide Antibiotics)] Allergy ( Verified 04/02/17 11:37) Home Medications: Medication Instructions Recorded Albuterol [Proventil Inhaler HFA 2 puffs IH Q4H PRN 05/29/16 (*)] Cyclobenzaprine [Flexeril 10 MG 10 mg PO Q6HRS PRN 05/29/16 (*)] Gabapentin [Neurontin 300 MG (*)] 900 mg PO TID 05/29/16 Omeprazole 40 mg PO DAILY 05/29/16 Temazepam [Restoril 15 MG (*)] 30 mg PO HS PRN 05/29/16 Potassium Cl [Klor-Con 20 meq (*)] 20 meq PO DAILY 04/02/17 morphINE SR [Ms Contin/Oramorph 15 15 mg PO TID 04/02/17 mg (*)] oxyCODONE IR [Oxycodone Ir (*)] 15 mg PO Q4HRS PRN #30 tab 04/04/17 Citalopram Hydrobromide [celeXA 10 10 mg PO DAILY 06/06/17 MG] Herbals/Supplements -Info Only 1 ea PO DAILY 06/06/17 Ibuprofen [Motrin (*)] 200 mg PO DAILY PRN 06/06/17 Tamsulosin HCl [Flomax 0.4 MG (*)] 0.4 mg PO DAILY 06/06/17 Medical Decision Making - Diagnostics Imaging Results: Imaging Impressions Lumbar Spine MRI 06/05/17 21:43 Impression: 1. New compression fracture of L5, likely acute or subacute, with retropulsion of the posterior wall of the vertebral body which results in severe canal stenosis at this level. 2. Canal stenosis, severe at L2-L3 and mild at L1-L2 and L3-L4. Possible tethering of the cauda equina at L2-L3. 3. Foraminal stenosis, moderate on the right and mild on the left at L1-L2, severe on the right and moderate on the left at L2-L3 and L3-L4, and severe bilaterally at L4-L5. Dr. Conteh discussed these findings by telephone with DANIEL MARTEL on 2017 at 2258 hours. Imaging: Discussed imaging studies w/ call center dispatcher Radiologist ED Course/Re-evaluation: 11:10 p.m. I discussed the case with Dr. Tam who agreed with admission and steroids and will consult tomorrow. 11:15 p.m. I spoke with Dr. Moreira who will admit to the medical service. Differential Diagnosis: Partial list of the Differential diagnosis considered include but were not limited to; radiculopathy, cauda equina, fracture and although unlikely based on the history and physical exam, I also considered infection, transverse myelitis, ischemia, aneurysm. - Data Points Laboratory Results: Laboratory Results 06/05/17 22:00 06/05/17 22:00 Medications Given: Ethyl Alcohol (Vodka) 50 ml PO TID TERRY Stop: 12/03/17 08:59 Last Admin: 06/06/17 11:00 Dose: 50 ml Discontinued Medications Hydrocodone Bitart/Acetaminophen (Houstonia 5/325) 1 - 2 tab PO Q4HRS PRN PRN Reason: Pain, Moderate Able to Take PO Stop: 06/16/17 01:24 Last Admin: 06/06/17 05:53 Dose: 2 tab Dexamethasone (Decadron Injection) 10 mg IVP EDNOW ONE Stop: 06/05/17 23:18 Last Admin: 06/05/17 23:58 Dose: 10 mg Sodium Chloride (Ns) 1,000 mls @ 0 mls/hr IV ONCE ONE; Wide Open PRN Reason: Protocol Stop: 06/05/17 21:43 Last Admin: 06/05/17 22:51 Dose: 1,000 mls Ketamine HCl (Ketamine) 11.3 mg 0.2 mg/kg (11.3 mg) IVP EDNOW ONE Stop: 06/05/17 21:42 Last Admin: 06/05/17 22:10 Dose: Not Given Ketorolac Tromethamine (Toradol) 15 mg IVP EDNOW ONE Stop: 06/05/17 23:21 Last Admin: 06/05/17 23:58 Dose: 15 mg Lorazepam (Ativan) 0.5 - 1 mg PO Q8HRS PRN PRN Reason: Anxiety, Able to Take PO Stop: 12/03/17 01:24 Last Admin: 06/06/17 02:00 Dose: 1 mg Departure - Departure Disposition: [facility] Inpatient Acute Clinical Impression: Bilateral leg weakness Low back pain Qualifiers: Chronicity: unspecified Back pain laterality: bilateral Sciatica presence: unspecified whether sciatica present Qualified Code(s): M54.5 - Low back pain Condition: Fair
[2017-06-05 22:21] LABS: PLATELET COUNT 211 10^3/uL (150-400)
[2017-06-05 22:31] LABS: INR 1.01 (0.83-1.16); PROTIME(PATIENT) 13.5 SEC (12.0-15.0)
[2017-06-05] MEDS ORDERED: DEXAMETHASONE 10 MG/ML VIAL IVP ONE (23:17)
[2017-06-05] MEDS ORDERED: KETOROLAC 30 MG/1 ML SDV IVP ONE (23:20)
[2017-06-06] MEDS ORDERED: ACETAMINOPHEN 325 MG TAB PO PRN (01:25)
[2017-06-06] MEDS ORDERED: ONDANSETRON 4 MG/2 ML VIAL IVP PRN (01:25)
[2017-06-06] MEDS ORDERED: HYDROmorphONE/DILAUDID 2 MG/ML INJ IVP PRN (01:25)
[2017-06-06] MEDS ORDERED: LORazepam 0.5 MG TAB PO PRN (01:25)
[2017-06-06] MEDS: HYDROCODONE/APAP 5/325 TAB PO PRN ×2 (01:59→05:53)
[2017-06-06 05:08] LABS: PLATELET COUNT 200 10^3/uL (150-400)
--- NOTE | 2017-06-06 08:26 | GCON ---
[f rep st] CONSULTATION NEUROSURGICAL CONSULTATION DATE OF CONSULTATION: 06/06/2017 CHIEF COMPLAINT: Low back and bilateral leg pain and weakness. HISTORY OF PRESENT ILLNESS: The patient is a pleasant 71-year-old gentleman with a history of alcoholism and prostate cancer, who lives at the [facility]. He states that 2 days ago, he developed severe pain in his lower buttocks and right greater than left lateral thighs and calves. He states that approximately 7 days ago, he was assisting a friend who had fallen and while picking them up, he lost his balance and he too fell down. He states that he noticed a sharp pain in his right leg and then had difficulty walking on it secondary to this pain. Currently, he is lying comfortably in the hospital bed, moves his legs easily, and states that his leg pain has improved, but is still present, primarily localized to the right inferior buttock, right lateral thigh, and right lateral calf to the ankle, and to a lesser degree in the same distribution in the left leg, as well as pain in his "tailbone." ALLERGIES: Sulfa. HOME MEDICATIONS: Albuterol inhaler 2 puffs every 4 hours as needed, cyclobenzaprine 10 mg p.o. t.i.d., gabapentin 900 mg p.o. t.i.d., omeprazole 40 mg daily, Restoril 30 mg p.o. q.h.s. as needed, Lasix 20 mg p.o. daily, potassium 20 mg p.o. daily, simethicone 125 mg p.o. q.6 hours p.r.n., MS Contin 15 mg p.o. b.i.d., lidocaine patches as needed, Oxy IR 15 mg p.o. q.4 hours p.r.n., and prednisone 40 mg p.o. daily. PHYSICAL EXAMINATION: GENERAL: Pleasant, elderly appearing 71-year-old male, in no apparent distress. HEAD, EARS, NOSE AND THROAT: Within normal limits. EXTREMITIES: Within normal limits. He does have some mild scrapes across his mid back, but no open sores. NEUROLOGIC: The patient is awake, alert, and oriented x4. Cranial nerves 2 through 12 are intact to gross examination. Speech is fluent. Tongue is midline. Spinal accessory muscles are intact. He has equal and symmetric strength of the bilateral upper and lower extremities in all muscle groups and is able to straight-leg raise without difficulty, both legs off the bed. He has 5/5 in the quads, hamstrings, dorsiflexors, plantarflexors, iliopsoas, extensor hallucis longus, and gastrocnemius bilaterally. Sensation is grossly intact to light touch in all dermatomal distributions of the bilateral upper and lower extremities. Reflexes are absent in the bilateral biceps and brachioradialis. There is no Babin's, and there are 1/4 bilateral patellar tendon reflexes. LABORATORY RESULTS: White blood cell count 8.06, hemoglobin 12.2, hematocrit 36.5, platelets 200. INR is 1.01. Sodium 138, potassium 4.7, chloride 103, carbon dioxide 27, BUN 13, creatinine 0.6. Ethyl alcohol level is 21. Urinalysis is negative. REVIEW OF SYSTEMS: Negative other than mentioned in the HPI. PAST MEDICAL HISTORY: Prostate cancer, COPD, alcoholism, chronic pain, opioid dependency, low back pain. FAMILY HISTORY: Noncontributory. SOCIAL HISTORY: The patient lives at an assisted living facility. He smokes less than a pack a day and drinks alcohol daily. DATA REVIEW: MRI of the lumbar spine from 06/05/2017 without contrast demonstrates a new compression fracture of L5, which is likely acute, with retropulsion of the posterior wall of the vertebral body resulting in severe canal stenosis. Severe canal stenosis is also noted at L2-3, with mild stenosis at L1-2 and L3-4. Per the radiology report, there is possible tethering of the cauda equina at L2-3. Foraminal stenosis is noted to be moderate on the right and mild on the left at L1-2, severe on the right and moderate on the left at L2-3 and L3-4, and severe bilaterally at L4-5. The sacrum appears symmetric, with no signal abnormalities. IMPRESSION: This is a 71-year-old male with a fall approximately 7 days ago and the onset of sacral pain and bilateral right greater than left leg pain in an L5 distribution. Neurologically, the patient is intact, with no bowel or bladder changes, paresthesias, hypoesthesias, or weakness. His main complaint at this time is right greater than left leg pain. He does move easily throughout the bed and is able to sit up and dangle his legs at the bedside without appreciable pain. PLAN: All of the above issues were discussed with the patient in detail today, with Dr. Armendariz who was present. At this time, we recommend that the patient undergo a metastatic workup, and I have ordered a CT of the chest, abdomen, and pelvis. I have also ordered an MRI of the lumbar spine with contrast to further clarify the findings in the lumbar spine and given his history of prostate cancer. I recommend the patient be fitted with an LSO brace, and I have ordered that [employer] be contacted for him to be fitted with this today. He may work with physical therapy and occupational therapy once that brace is in place. We recommend pain management, and we will follow his progress. Dr. Armendariz did explain that the patient would be a candidate for fusion surgery should he fail to improve with conservative measures. The patient would like to think about all of these options before agreeing to any surgical intervention. We agree that this would be fine and see how he progresses as mentioned with conservative modalities. /[id number]/MODL MTDD
[2017-06-06] MEDS ORDERED: IOPAMIDOL (ISOVUE-300) 100 ML BTL ONE (09:15)
[2017-06-06] MEDS: VODKA 50 ML BOTTLE PO SCH ×4 (09:17→22:16)
--- NOTE | 2017-06-06 09:52 | GHP ---
[f rep st] HISTORY AND PHYSICAL DATE OF ADMISSION: 06/05/2017 SOURCE: Patient provides history with fair historian. EMR was reviewed and case discussed with ED randy duncan. CHIEF COMPLAINT: Back pain with bilateral lower extremity weakness. HISTORY OF PRESENT ILLNESS: This is a very pleasant 71-year-old gentleman with past medical history significant for degenerative disk disease with cervical and lumbar spine, no stenosis, COPD on 4 L ch ronically of oxygen, history of alcoholism and chronic opiate dependence, prostate cancer, status pos t treatment with Lupron ,history rib fractures, history of multiple falls, history of pancreatitis, h ypertension, tobacco dependence, and neuropathy who presents the emergency department today with comp laints of progressive and worsening bilateral thigh pain, weakness, and back pain. Patient feels as though his legs are becoming increasingly weak proximally. He feels like his muscle tone has decline d. He has had a history of multiple falls over the course of the month. He denies any head injury o r loss of consciousness at any of these times. He denies any bladder or bowel incontinence or retent ion issues. The patient does report some right-sided radicular symptoms that run down to his foot on the left. He reports his strength on the left is slightly better than on the right. REVIEW OF SYSTEMS: GENERAL: Patient denies any fevers or chills. SKIN: No rashes or sores. ENT: No congestion sore throat. EYES: Patient does report history of right cataract with decreased vision and left eye with progressive changes. He also reports intermittent floaters. CARDIOVASCULAR: Patien t denies any chest pain or palpitations. RESPIRATORY: Patient reports his shortness of breath is at b aseline. He has a chronic cough. GI: Patient denies any nausea or vomiting. No abdominal pain, no diarrhea. : No dysuria or hematuria. MUSCULOSKELETAL: Positive for back pain, bilateral thigh we akness and pain as noted above in HPI. NEUROLOGIC: Numbness and tingling down the right leg. No foca l deficits. PSYCHIATRIC: Patient does report some depressed mood with all his multiple chronic issue s, but he absolutely denies any SI or HI and no plans to harm himself. ALLERGIES: Sulfa. HOME MEDICATIONS: Oxy IR 50 mg p.o. q.4 hours p.r.n. for pain, morphine SR 50 mg p.o. three times da jay, temazepam 30 mg p.o. at nighttime, tamsulosin 0.4 mg p.o. daily, potassium Klor-Con 20 mEq p.o. daily, omeprazole 40 mg p.o. daily, ibuprofen 200 mg p.o. daily p.r.n., gabapentin 900 mg p.o. three times daily, cyclobenzaprine 10 mg p.o. q.6 hours p.r.n., citalopram 10 mg p.o. daily, albuterol HFA 2 puffs inhaled q.4 hours p.r.n. PAST MEDICAL HISTORY: 1. Significant for prostate cancer status post Lupron therapy. Patient with previous bone scans dave t did show areas of increased activity, but subsequent CT scan imaging without any notation of any ev idence of metastatic disease. The patient also describes that the initial impression of potentially metastatic disease was in error. He reports he has had subsequent imaging studies and bone scans dave t are negative for any evidence of metastatic disease. 2. COPD on 4 L/minute oxygen. 3. Degenerative disk disease. 4. Cervical and lumbar spine stenosis. 5. Rib fractures. 6. Hypertension. 7. Positive tobacco dependence. 8. Neuropathy in both feet. 9. Pancreatitis. 10. Falls. 11. Alcohol dependence. PAST SURGICAL HISTORY: Patient denies. FAMILY HISTORY: Sister is healthy. Cousins with degenerative disk disease. SOCIAL HISTORY: Patient reports he has cut back on his tobacco to 3/4 pack per day for 59 years. He does drink 3 times daily a small amount of rum and coke. CODE STATUS: Patient desires to be a DNR/DNI. PHYSICAL EXAMINATION: VITAL SIGNS: Upon arrival to the emergency department, blood pressure 138/78, heart rate is 74, respiratory rate 18, O2 saturation is 93% on 3 L by nasal cannula, temperature is 37.0. Vitals, blood pressure 154/77, heart rate 63, respiratory rate is 16, O2 saturation 91% 4 L by nasal cannula, temperature is 36.4. GENERAL: No acute distress. Pleasant, elderly, frail-appearing gentleman lying quietly in bed. HEAD: Normocephalic, atraumatic. EYES: Extraocular muscles intact . Pupils equal, round, with decreased reactivity to light bilaterally but symmetric. No scleral icte julian or conjunctival injection. ENT: Mucous membranes appear moist. No oropharyngeal erythema or ex udates. NECK: Supple. Trachea midline. CARDIOVASCULAR: Regular rate and rhythm. No murmurs, rub s, or gallops appreciated. Slightly distant heart sounds. RESPIRATORY: Diminished at the bases fatou aterally. No wheezes, rales, or rhonchi appreciated. Unlabored breathing. ABDOMEN: Positive bowel sounds. Soft, nontender to palpation. No rebound, guarding, or masses appreciated. : No suprapu bic tenderness to palpation. No Claudio catheter in place. EXTREMITIES: Patient with slightly decreas ed strength in the lower extremities bilaterally. 4/5 strength in upper and lower extremities overal l. Slightly more so on the right proximal leg compared to the left, however. Sensation is intact. Slightly diminished at the distal extremities. NEUROLOGIC: Grossly nonfocal. No facial drooping. Installation Coordinator nial nerves intact, symmetric bilaterally. PSYCHIATRIC: Thought process, content and questions are ap propriate. The patient's mood does appear to be slightly decreased, diminished, but he is otherwise in fairly good spirits and interactive. LABORATORY STUDIES: WBC 9.86, H and H is 11.9 and 35.8, MCV 89.3, platelet count is 211, neutrophil percent 80.1%, no bands. PT is 13.5, INR is 1.01, PTT 33.93. Sodium 138, potassium 4.7, chloride 10 0, CO2 is 26, anion gap 12, BUN 11, creatinine 0.7. GFR greater than 60, glucose is 83, calcium is 8. 8. A pH of 6.0, specific gravity 1.008, no bands, otherwise negative. Alcohol level of 21. Lumbar spine MRI, see report for full details. Right renal cyst with septations, similar to previous exam. Posterior paraspinal muscles. Mild fatty atrophy inferiorly. Some cauda equina s uperior to L2-3 region suggesting tethering. Vertebrae moderate compression deformity L5, new since previous studies. Mild associated T2 hyperint ensity suggesting acute versus subacute. Retropulsion of the posterior wall of the vertebral body re sults in severe spinal canal stenosis at this level. Mild chronic superior endplate deformity L3, no t significantly changed. Degenerative changes noted including moderate disk loss height T12-L1, estelle re loss disk height at L1-L2, L2-3, moderate loss of disk height and 2 mm of retrolisthesis. Disk bu lge resulting in severe canal stenosis, severe right, moderate left foraminal stenosis L4-5, disk bul ge resulting in severe bilateral foraminal stenosis. L5-S1 mild bilateral facet arthropathy without changes of foraminal stenosis. ASSESSMENT AND PLAN: Pleasant 71-year-old gentleman who presents to the emergency department with co mplaints of bilateral thigh pain and weakness as well as back pain. 1. Thigh weakness. Patient does demonstrate a little bit of atrophy. The patient does have an acut e versus subacute L5 compression fracture. Continues to complain of some pain. K-pad pain managemen t and Lidoderm patch available p.r.n. Discussion with patient regarding metastatic disease reported to have been false for the patient and reports that he has since had clearance from his disease. Gemma rosurgery was consulted for further evaluation of patient and for recommendations. He has not made n .p.o. Recommendation is for bhandari CT to further evaluate for any potential recurrence of metastatic di sease. PT, OT will be consulted. 2. Acute on chronic back pain. Pain management is available for the patient p.r.n. Levy Rust, [place], Tylenol p.r.n. Also, patient was given the 10 mg of Decadron in the emergency department t o see if this would alleviate some of his symptoms. We will plan to reassess in the morning. 3. Leg weakness. PT, OT. Plan as noted above. 4. Chronic anemia, likely of chronic disease. 5. Hyperglycemia following steroids. Continue to monitor. No need for insulin sliding scale at thi s time. 6. History of prostate cancer with questionable metastatic disease, reported in remission. 7. Cervical spine stenosis. 8. Degenerative disk disease in lumbar spine and cervical spine. 9. Chronic obstructive pulmonary disease, on 4 L/minute. 10. Alcohol dependence. Cessation or decreasing alcohol intake was advised. 11. Benign essential hypertension. Continue to monitor. Acceptable at this time. 12. Positive tobacco dependence. Cessation encouraged. 13. Neuropathy bilateral feet. Supportive care, Lyrica p.r.n. 14. Prophylaxis, sequential compression devices. Lovenox appropriate. 15. Code status, DNR/DI, and patient denies any suicidal ideation or homicidal ideation. He does coelho ve advanced directives completed and they are in the chart from his [place] [facility] facility. 16. Disposition. Patient admitted to observation status at this time pending neurosurgical recommend ations. /[id number]/MODL
[2017-06-06] MEDS ORDERED: GADOBUTROL 10 ML VIAL IVP ONE ×2 (10:47→14:03)
--- NOTE | 2017-06-06 12:23 | ASMTCMCOM ---
CM Note CM Note Notes: Chart reviewed. 71 year old male who lives at [facility], he is a current everyday smoker and alcohol user. He also takes pain medication and sleeping medication, Has sustained multiple falls. He is on chronic oxygen at [facility]. He has been admitted vis ED for leg weakness and back pain. He is being evaluated by neurosurgery at this time. Therapy evaluations pending brace. CM to follow. Date Signed: 06/06/2017 12:22 PM Electronically Signed By:Jillian Booth RN
[2017-06-06] MEDS ORDERED: TEMAZEPAM 15 MG CAP PO PRN (12:25)
[2017-06-06] MEDS ORDERED: CYCLOBENZAPRINE 10 MG TAB PO PRN (12:25)
[2017-06-06] MEDS ORDERED: IBUPROFEN 200 MG TAB PO PRN (12:25)
[2017-06-06] MEDS ORDERED: ALBUTEROL 60 PUFFS/8 GM MDI IH PRN (12:25)
[2017-06-06] MEDS ORDERED: oxyCODONE IR 15 MG TAB PO PRN (12:25)
--- NOTE | 2017-06-06 12:25 | HOSPPROG ---
Hospitalist Progress Note Assessment/Plan: Patient is a 71-year-old male with a past medical history significant for degenerative disc disease, COPD on 4 L of oxygen, history of alcoholism and chronic opiate dependence, prostate cancer. And multiple medical issues. He presented the emergency room with back pain and bilateral lower extremity weakness. Today is my 1st encounter with the patient. Chart reviewed. Appreciate neurosurgery seeing the patient. * bilateral weakness as well as thigh pain. -reviewed the note from Neurosurgery. -no metastatic disease was acutely noted -he has a new L5 compression fracture -a brace has been ordered -has underlying DDD *acute on chronic back pain -resumed his home regimen -his pain occurs mainly when he is walking *regular alcohol use -Vodka TID -he doesn't want to stop drinking *Underweight with a BMI of 19.6 *HTN -bp elevated; will cont monitoring *nicotine dependence -nicotine patch ordered *COPD -not in exacerbation *hyperglycemia -may need sliding scale *gait instability -patient falls frequently at home/ doesn't think the alcohol or pain meds are affecting him. Say it is due to his recliner and tripping on the oxygen. *Plan: patient will require another midnight stay. This will make him IP stay. Can't walk due to pain. High risk of falling again. * Subjective: Jonathan is not having pain while sitting still. Objective: Vital Signs Temp Pulse Resp BP Pulse Ox 36.4 C 61 18 179/82 H 94 06/06/17 11:19 06/06/17 11:19 06/06/17 11:19 06/06/17 11:19 06/06/17 11:19 Laboratory Results 06/06/17 04:32 06/06/17 04:32 06/05/17 06/06/17 06/07/17 05:59 05:59 05:59 Intake Total 1000 Output Total 200 Balance 800 PT 13.5 SEC (12.0-15.0) 06/05/17 22:00 INR 1.01 (0.83-1.16) 06/05/17 22:00 - Physical Exam Constitutional: chronically ill appearing, cachectic Eyes: PERRL Ears, Nose, Mouth, Throat: hearing normal Cardiovascular: regular rate and rhythym Respiratory: no respiratory distress, reduced air movement (bibasilar) Skin: warm Musculoskeletal: generalized weakness Neurologic: AAOx3 Psychiatric: interacting appropriately ICD10 Worksheet Patient Problems: Problems Problem Status Onset Bilateral leg weakness Acute Low back pain Acute Accidental fall from chair Acute Acute encephalopathy Acute Acute hyperactive alcohol withdrawal delirium Acute Altered mental status Acute Aspiration into airway Acute Chronic pain Acute Closed right clavicular fracture Acute Dehydration Acute Failure to thrive Acute Generalized weakness Acute History of fall Acute Hypoxia Acute Multiple fractures of ribs of right side Acute Opiate dependence, continuous Acute Palliative care encounter Acute Pancreatitis Acute Pneumonia Acute Pneumonia Acute Polypharmacy Acute Polysubstance abuse Acute Polysubstance dependence including opioid drug with daily use Acute Recurrent falls Acute Rib fractures Acute Thoracic compression fracture Acute
[2017-06-06] MEDS ORDERED: NON-FORMULARY NEW DRUG (Citalopram Hydrobromide [Celexa 10 Mg] 10 MG) PO SCH (12:30)
[2017-06-06] MEDS ORDERED: oxyCODONE IR 5 MG TAB PO PRN (14:07)
[2017-06-06] MEDS: GABAPENTIN 300 MG CAP PO SCH ×2 (15:43→22:15)
[2017-06-06] MEDS: morphINE SR 15 MG TAB PO SCH ×2 (15:43→22:15)
--- NOTE | 2017-06-06 15:54 | PDMN ---
Medical Necessity Medical necessity: C/M review: est. > 2 MN LOS for eval and TX of new l5 compression fracture, acute and persistent bilateral lower extremity weakness, thigh pain, acute on chronic back pain which occurs mainly with ambulation, , inability to ambulate due to pain, hyperglycemia, gait instability, requiring lumbar brace ordered, possible sliding scale insulin, ongoing pain management with multiple oral medications, pulse oximetry, supplemental O2, blood glucose monitoring, acute inpt PT/OT, comorbid regular alcohol use, underweight with BMI 19.6, hypertension, nicotine dependence, COPD on chronic 4l/min O2, , history of frequent falls at home, degenerative disc disease, alcoholism, chronic opiate dependence, prostate cancer per 06/06/2017 Hospitalist progress note.
[2017-06-07] MEDS: LORazepam 2 MG/ML INJ IVP PRN ×6 (00:33→10:59)
[2017-06-07] MEDS ORDERED: HALOPERIDOL LACT 5 MG/ML INJ ONE (02:11)
[2017-06-07] MEDS: VODKA 50 ML BOTTLE PO SCH ×2 (02:17→09:23)
[2017-06-07] MEDS: DEXMEDETOMIDINE HCL 400 MCG in NS 100 ML IV SCH ×3 (04:56→18:26)
[2017-06-07] MEDS ORDERED: Herbals/Supplements -Info Only PO SCH (09:00)
[2017-06-07] MEDS: POTASSIUM CL 20 MEQ TAB PO SCH (09:23)
[2017-06-07] MEDS: TAMSULOSIN HCL 0.4 MG CAP PO SCH (09:23)
[2017-06-07] MEDS: MULTIVITAMINS 1 EACH TAB PO SCH (09:23)
[2017-06-07] MEDS: FOLIC ACID 1 MG TAB PO SCH (09:23)
[2017-06-07] MEDS: CITALOPRAM 20 MG TAB PO SCH (09:23)
--- NOTE | 2017-06-07 10:15 | HOSPPROG ---
Hospitalist Progress Note Assessment/Plan: #Alchohol w/d: wean off precedex. Cont CIWA. Check LFTs #Acute on chronic back pain: L5 compression fracture, severe spinal stenosis L4/ 5. No e/o bony lesions with h/o prostate cancer. NSGY reviewed. Brace when out of bed #Falls: related to Etoh #HTN: not on outpatient meds #COPD: no signs of exacerbation #Bradycardia: related to Precedex, wean today #Chronic hypoxemic resp failure: 3L at baseline #Chronic pain: MS contin at home. Give low-dose IV here since not taking PO #Diet: NPO for now, IVFs #DVT ppx: Lovenox #Disp: warrants ICU care with etoh w/d, requiring CIWA Subjective: agitated this morning. Bradycardic on precedex Objective: Vital Signs Temp Pulse Resp BP Pulse Ox 36.9 C 51 L 19 143/98 H 97 06/07/17 04:00 06/07/17 09:00 06/07/17 09:00 06/07/17 09:00 06/07/17 09:00 06/06/17 06/07/17 06/08/17 05:59 05:59 06:59 Intake Total 280 Output Total 0 Balance 280 PT 13.5 SEC (12.0-15.0) 06/05/17 22:00 INR 1.01 (0.83-1.16) 06/05/17 22:00 - Physical Exam Constitutional: uncomfortable, cachectic, other (restless, trying to get out of bed) Ears, Nose, Mouth, Throat: moist mucous membranes Cardiovascular: bradycardia Respiratory: no respiratory distress Gastrointestinal: normoactive bowel sounds Genitourinary: no bladder fullness Musculoskeletal: other (roller belt in place) Neurologic: CN II-XII Intact, other (thinks he[place]. Not oriented to place or time) Psychiatric: encephalopathic, anxious, agitated ICD10 Worksheet Patient Problems: Problems Problem Status Onset Pneumonia Acute Polysubstance dependence including opioid drug with daily use Acute Altered mental status Acute Opiate dependence, continuous Acute Acute encephalopathy Acute Aspiration into airway Acute Polypharmacy Acute Acute hyperactive alcohol withdrawal delirium Acute Palliative care encounter Acute Rib fractures Acute Chronic pain Acute Pancreatitis Acute Dehydration Acute History of fall Acute Pneumonia Acute Thoracic compression fracture Acute Polysubstance abuse Acute Generalized weakness Acute Failure to thrive Acute Recurrent falls Acute Multiple fractures of ribs of right side Acute Accidental fall from chair Acute Closed right clavicular fracture Acute Hypoxia Acute Low back pain Acute Bilateral leg weakness Acute
--- NOTE | 2017-06-07 12:01 | NEUSURGPN ---
Assessment/Plan: A: 71 yo M with hx of ETOH abuse, admitted with acute L5 fx after fall 1 week ago. Has hx of COPD, chronic pain, smoker. P: -Transferred to ICU for CIWA protocol, on precedex/ativan -Imaging reviewed and no evidence of bony metastasis, has prior hx of prostate cancer -MRI L spine with severe spinal stenosis at L5/S1 with acute L5 fx -Recommend brace when OOB - to be fitted by handic[employer] -Reviewed plan with pt's RN -D/w Dr Armendariz -Please call NS with any questions or concerns Subjective: Unable to obtain Objective: Sleepy but awakens easily Moaning, no intelligible speech VSS On precedex MAEx4, has restraints BUE and is trying to get out of bed He did follow commands for me with BLE and is 5/5 with no deficits noted Urinary Catheter in Place: No - Physician Discussed Patient with Dr.: Armendariz Neurosurgery Physical Exam - Vitals, I&O, Labs I and O 06/06/17 06/07/17 06/08/17 05:59 05:59 06:59 Intake Total 280 Output Total 0 Balance 280 Weight 60.8 kg 57 kg Intake: Oral (ml) 280 Output: Urine (ml) 0 Toilet 0 Other: Intake Quantity Yes Sufficient Number of Voids Toilet 1 Number of Stools Toilet 1 Vital Signs Temp Pulse Resp BP Pulse Ox 36.9 C 53 L 10 L 176/73 H 93 06/07/17 04:00 06/07/17 11:00 06/07/17 11:00 06/07/17 11:00 06/07/17 11:00 ICD10 Worksheet Patient Problems: Problems Problem Status Onset Bilateral leg weakness Acute Low back pain Acute Accidental fall from chair Acute Acute encephalopathy Acute Acute hyperactive alcohol withdrawal delirium Acute Altered mental status Acute Aspiration into airway Acute Chronic pain Acute Closed right clavicular fracture Acute Dehydration Acute Failure to thrive Acute Generalized weakness Acute History of fall Acute Hypoxia Acute Multiple fractures of ribs of right side Acute Opiate dependence, continuous Acute Palliative care encounter Acute Pancreatitis Acute Pneumonia Acute Pneumonia Acute Polypharmacy Acute Polysubstance abuse Acute Polysubstance dependence including opioid drug with daily use Acute Recurrent falls Acute Rib fractures Acute Thoracic compression fracture Acute
--- NOTE | 2017-06-07 14:42 | GCON ---
[f rep st] CONSULTATION PULMONARY CRITICAL CARE CONSULTATION. DATE OF CONSULTATION: 06/07/2017 REASON FOR CONSULTATION: Alcohol withdrawal. HISTORY: The patient is a 71-year-old who was admitted to the hospital on 06/05 for increasing back pain radiating into his thighs and calves. This was associated with some subjective weakness as well of the lower extremities. Seven days prior he had fallen. He has a history of multiple medical pro blems, as outlined below in the past medical history. One of these is ongoing alcohol abuse. He dri nks 3 glasses of rum on a daily basis. Following admission he was seen by Neurosurgery. MRI was ord ered. There was severe spinal stenosis at L5-S1 with an L5 acute fracture. A brace was recommended. He was placed on the CIWA protocol, given p.r.n. Ativan and alcohol was scheduled as well as he had no intentions of quitting drinking. Yesterday he started to refuse further alcohol. He had signs a nd symptoms of increasing alcohol withdrawal, received. frequent higher doses of Ativan, and was mov ed to the intensive care unit as a stat call. Secondary to large doses of Ativan he did require Prec edex. He is now somnolent in the intensive care unit, mildly hypertensive, but otherwise with stable vital signs. PAST MEDICAL HISTORY: Remarkable for COPD and ongoing tobacco abuse. There is a history of prostate cancer, status post Lupron therapy, without evidence of active disease at this time. He has a histo ry of cervical as well as lumbar spinal stenosis and degenerative disk disease, systemic hypertension , a history of pancreatitis secondary to alcohol, neuropathy, and a history of falling. MEDICATIONS ON ADMISSION: Included Celexa, Flomax, potassium, omeprazole, high-dose gabapentin, Flex eril, albuterol by meter dose inhaler as needed, oxycodone IR and morphine SR and Restoril at night. He is on oxygen at 4 L. ALLERGIES: Sulfa preparations. SOCIAL HISTORY: He lives at [facility]. He continues to smoke and drink as noted in the HPI. He is currently smoking less than 1 pack of cigarettes per day. FAMILY HISTORY: Noncontributory per the chart/unobtainable. REVIEW OF SYSTEMS: Unobtainable. PHYSICAL EXAMINATION: GENERAL: Reveals a thin gentleman who appears older than his stated age. He is somnolent and weakly arousable. VITAL SIGNS: Blood pressure is approximately 175/70, heart rate 50 with sinus bradycardia on the monitor, respiratory rate is 18. On 5 L of oxygen saturations are 9 8%. HEENT: Remarkable for dry mucous membranes. Pupils appear equal. CHEST: Clear bilaterally wi th decreased breath sounds and a prolonged expiratory phase. There are no wheezes or rhonchi. HEART : Regular in rate and rhythm although bradycardic. A systolic murmur is present. ABDOMEN: Scaphoi d, soft, and not apparently tender. Bowel sounds are present but diminished. No Claudio catheter is i n place. EXTREMITIES: There is trace lower extremity edema, no obvious cords. SKIN: Pale, without rash or lesion. NEUROLOGIC: Examination is nonfocal. He moves extremities to stimulation. He is currently somnolent, not verbal. DATABASE: CT scan of the chest on admission showed emphysema, small pulmonary nodule in the left upp er lobe and some areas of subsegmental atelectasis, probably associated with some mucus plugging. Th ere is no evidence of metastatic prostate disease. An old T6 compression fracture was noted. Abdominal CT scan was negative as well. There was no evidence of pancreatitis or cholelithiasis. Th e pancreas appeared normal. The acute L5 compression fracture is as noted from the patient's MRI. LABORATORY: White blood cell count is 8000, hematocrit 36, platelets 200,000. PT and PTT were marge l on admission. Basic metabolic panel is within normal limits with the exception of a mildly elevate d glucose. Urinalysis was negative. Blood alcohol on admission was 21. ASSESSMENT: 1. Alcohol withdrawal/delirium tremens. The patient did develop significant withdrawal symptoms, re ceived high-dose Ativan and required Precedex. We have a new alcohol withdrawal protocol. For indiv iduals on Precedex, Ativan 2 mg IV q.6 hours should be given on a scheduled basis to prevent seizures . Intravenous versed should be used for acute agitation. Precedex should be weaned as tolerated. 2. L5 compression fracture. This is associated with severe spinal stenosis and back pain. Neurosur ras is following. A brace has been ordered to be worn when he is out of bed. 3. Chronic obstructive pulmonary disease. He is chronically on oxygen at 4 L, uses albuterol alone. 4. History of chronic back pain, on chronic narcotics. 5. History of hypertension. Blood pressures are acceptable. He is on no antihypertensives. 6. Deep venous thrombosis prophylaxis, on Lovenox. 7. Gastrointestinal prophylaxis, will reinitiate omeprazole which he is on at home. PLAN AND RECOMMENDATIONS: The patient will be kept in the intensive care unit. Ativan will be added routinely, Precedex weaned as tolerated. Thiamin will be continued. The CIND protocol will be cont inued. His usual outpatient medications will be maintained if he can swallow safely. These include Neurontin, Flexeril, Flomax and Celexa. Saline will be continued. Pain control will be maintained. Swallow will be assessed at the bedside. Morphine is ordered p.r.n. if he needs it and cannot take p.o. medications. Laboratory will be followed. Further plans and recommendations will be made based on his progress over the next 12-24 hours. /[id number]/MODL
[2017-06-07] MEDS: NS 1,000 ML IV SCH (17:26)
[2017-06-07] MEDS: HALOPERIDOL LACT 5 MG/ML INJ IVP PRN ×2 (17:27→21:36)
[2017-06-07] MEDS: LORazepam 2 MG/ML INJ IVP SCH (17:28)
[2017-06-08] MEDS: DEXMEDETOMIDINE HCL 400 MCG in NS 100 ML IV SCH ×4 (00:32→19:00)
[2017-06-08] MEDS: HALOPERIDOL LACT 5 MG/ML INJ IVP PRN ×4 (01:37→17:28)
[2017-06-08] MEDS: MIDAZOLAM 2 MG/2 ML VIAL IVP PRN ×6 (03:51→19:29)
[2017-06-08] MEDS: NS 1,000 ML IV SCH ×2 (03:55→14:55)
[2017-06-08 05:13] LABS: PLATELET COUNT 239 10^3/uL (150-400)
[2017-06-08] MEDS: LORazepam 2 MG/ML INJ IVP SCH ×4 (05:55→18:04)
--- NOTE | 2017-06-08 08:25 | NEUSURGPN ---
Assessment/Plan: A: 71 yo M with hx of ETOH abuse, admitted with acute L5 fx after fall 1 week ago. Has hx of COPD, chronic pain, smoker. P: -Transferred to ICU for CIWA protocol, on precedex/ativan/haldol -Imaging reviewed and no evidence of bony metastasis, has prior hx of prostate cancer -MRI L spine with severe spinal stenosis at L5/S1 with acute L5 fx -Recommend brace when OOB - to be fitted by back hanger. Have not been able to try this given ETOH withdrawal/agitation -Reviewed plan with pt's RN -Please call NS with any questions or concerns Subjective: Unable to obtain Objective: Awake in bed, trying to get out restraints BUE MAEx4 Not following commands Speech unintelligible Urinary Catheter in Place: No Neurosurgery Physical Exam - Vitals, I&O, Labs I and O 06/07/17 06/08/17 06/09/17 04:59 05:59 05:59 Intake Total Output Total Balance Weight 57 kg Intake: Oral (ml) IV Intake (ml) IV Infused (ml) Dexmedetomidine HCl 400 mcg In Ns 100 ml @ Titrate IV CONT TERRY Rx#: [id number] Output: Urine (ml) Toilet Urinal Other: Intake Quantity Sufficient Number of Voids Incontinence Toilet Number of Stools Incontinence Toilet Vital Signs Temp Pulse Resp BP Pulse Ox 36.6 C 66 26 H 145/78 H 94 06/08/17 08:00 06/08/17 08:00 06/08/17 08:00 06/08/17 08:00 06/08/17 08:00 Laboratory Results 06/08/17 05:00 06/08/17 05:00 ICD10 Worksheet Patient Problems: Problems Problem Status Onset Bilateral leg weakness Acute Low back pain Acute Accidental fall from chair Acute Acute encephalopathy Acute Acute hyperactive alcohol withdrawal delirium Acute Altered mental status Acute Aspiration into airway Acute Chronic pain Acute Closed right clavicular fracture Acute Dehydration Acute Failure to thrive Acute Generalized weakness Acute History of fall Acute Hypoxia Acute Multiple fractures of ribs of right side Acute Opiate dependence, continuous Acute Palliative care encounter Acute Pancreatitis Acute Pneumonia Acute Pneumonia Acute Polypharmacy Acute Polysubstance abuse Acute Polysubstance dependence including opioid drug with daily use Acute Recurrent falls Acute Rib fractures Acute Thoracic compression fracture Acute
[2017-06-08] MEDS: FOLIC ACID 1 MG TAB PO SCH (09:12)
[2017-06-08] MEDS: TAMSULOSIN HCL 0.4 MG CAP PO SCH (09:13)
[2017-06-08] MEDS: POTASSIUM CL 20 MEQ TAB PO SCH (09:13)
[2017-06-08] MEDS: MULTIVITAMINS 1 EACH TAB PO SCH (09:13)
[2017-06-08] MEDS: CITALOPRAM 20 MG TAB PO SCH (09:14)
[2017-06-08] MEDS ORDERED: MAGNESIUM SULF 1 GM/DEXTROSE 100 ML IV ONE (10:00)
--- NOTE | 2017-06-08 10:59 | HOSPPROG ---
Hospitalist Progress Note Assessment/Plan: #Fever: new today. CXR for aspiration. UA negative. Blood cultures. APAP PRN #Alchohol w/d: precedex, scheduled Ativan #Acute on chronic back pain: L5 compression fracture, severe spinal stenosis L4/ 5. No e/o bony lesions with h/o prostate cancer. NSGY reviewed. Brace when out of bed #Falls: related to Etoh #Torsades-appearing telemetry: Mg, K at goal #Acute toxic encephalopathy: due to w/d #HTN: not on outpatient meds #COPD: no signs of exacerbation #Bradycardia: related to Precedex, wean today #Chronic hypoxemic resp failure: 3L at baseline #Chronic pain: MS contin at home. Give low-dose IV here since not taking PO #Diet: NPO for now, IVFs. If less agitated tomorrow, may need feeding tube #DVT ppx: Lovenox #Disp: warrants ICU care with etoh w/d, requiring CIWA Subjective: agitated again this morning Objective: Vital Signs Temp Pulse Resp BP Pulse Ox 36.6 C 64 29 H 149/86 H 95 06/08/17 08:00 06/08/17 09:00 06/08/17 09:00 06/08/17 09:00 06/08/17 09:00 Laboratory Results 06/08/17 05:00 06/08/17 05:00 06/07/17 06/08/17 06/09/17 04:59 05:59 05:59 Intake Total Output Total Balance PT 13.5 SEC (12.0-15.0) 06/05/17 22:00 INR 1.01 (0.83-1.16) 06/05/17 22:00 - Physical Exam Constitutional: unkempt, cachectic Eyes: PERRL Ears, Nose, Mouth, Throat: dry mucous membranes Cardiovascular: regular rate and rhythym Gastrointestinal: normoactive bowel sounds, soft, non-tender abdomen Skin: warm Musculoskeletal: other (restrained. Not cooperative with exam) Neurologic: CN II-XII Intact Psychiatric: encephalopathic ICD10 Worksheet Patient Problems: Problems Problem Status Onset Bilateral leg weakness Acute Low back pain Acute Accidental fall from chair Acute Acute encephalopathy Acute Acute hyperactive alcohol withdrawal delirium Acute Altered mental status Acute Aspiration into airway Acute Chronic pain Acute Closed right clavicular fracture Acute Dehydration Acute Failure to thrive Acute Generalized weakness Acute History of fall Acute Hypoxia Acute Multiple fractures of ribs of right side Acute Opiate dependence, continuous Acute Palliative care encounter Acute Pancreatitis Acute Pneumonia Acute Pneumonia Acute Polypharmacy Acute Polysubstance abuse Acute Polysubstance dependence including opioid drug with daily use Acute Recurrent falls Acute Rib fractures Acute Thoracic compression fracture Acute
[2017-06-08] MEDS: ENOXAPARIN 40 MG/0.4 ML SYR SC SCH (11:21)
--- NOTE | 2017-06-08 15:44 | PDINTPN ---
Canned Food Reconditioning Inspector Progress Note Assessment/Plan: Assessment: Alcohol withdrawal. On the new CIWA protocol. Requiring Precedex, scheduled Ativan, p.r.n. Versed and Haldol. On thiamin. Recent fall, spinal compression fracture at L5. Neurosurgery following. Brace supposed to be worn when he is up. COPD: Secondary to ongoing tobacco abuse. No evidence of an exacerbation. On nicotine patch, oxygen and p.r.n. Bronchodilators. Spinal stenosis, chronic back pain. Prophylaxis: On enoxaparin and famotidine. Metabolic: No issues identified. On replacement protocols. Nutrition: None currently. Unsafe swallow secondary to mental status. Start oral intake when possible. Plan: Supportive care in the intensive care unit will be maintained. Continue CIWA protocol. Wean Precedex as tolerated. Follow laboratory. Continue IV morphine intermittently as needed for pain. 25 min of critical care time was spent directly with the patient. Discussed with nursing, hospitalist, the ICU multi disciplinary team. Subjective: Agitated and confused, unresponsive to commands. Looks to voice. Objective: Vital Signs Temp Pulse Resp BP Pulse Ox 38.2 C 65 31 H 141/75 H 93 06/08/17 12:00 06/08/17 14:00 06/08/17 14:00 06/08/17 14:00 06/08/17 14:00 Laboratory Results 06/08/17 05:00 06/08/17 05:00 06/07/17 06/08/17 06/09/17 04:59 05:59 05:59 Intake Total Output Total Balance PT 13.5 SEC (12.0-15.0) 06/05/17 22:00 INR 1.01 (0.83-1.16) 06/05/17 22:00 Laboratory Tests 06/08/17 05:00 Phosphorus 4.7 H Magnesium 1.9 Physical Exam - Physical Exam General Appearance: mild distress, thin, other (Restless, confused), No alert EENT: PERRL/EOMI, other (Nasal cannula in place at 4 L) Neck: normal inspection (No JVD) Respiratory: lungs clear, decreased breath sounds (At bases), No rales, No rhonchi Cardiac/Chest: regular rate, rhythm, systolic murmur Abdomen: non-tender, soft, No normal bowel sounds (Decreased, present) Male Genitalia: other (No Claudoi catheter) Skin: warm/dry, pallor Extremities: pedal edema Neuro/Psych: no motor/sensory deficits (Moves all extremities equally), cognition abnormalities (Secondary to withdrawal.), No oriented x 3 ICD10 Worksheet Patient Problems: Problems Problem Status Onset Pneumonia Acute Polysubstance dependence including opioid drug with daily use Acute Altered mental status Acute Opiate dependence, continuous Acute Acute encephalopathy Acute Aspiration into airway Acute Polypharmacy Acute Acute hyperactive alcohol withdrawal delirium Acute Palliative care encounter Acute Rib fractures Acute Chronic pain Acute Pancreatitis Acute Dehydration Acute History of fall Acute Pneumonia Acute Thoracic compression fracture Acute Polysubstance abuse Acute Generalized weakness Acute Failure to thrive Acute Recurrent falls Acute Multiple fractures of ribs of right side Acute Accidental fall from chair Acute Closed right clavicular fracture Acute Hypoxia Acute Low back pain Acute Bilateral leg weakness Acute
[2017-06-08] MEDS ORDERED: NICOTINE 21 MG/24 HR PATCH TD ONE (18:28)
[2017-06-08] MEDS: FAMOTIDINE 20 MG/NACL 50 ML IV SCH (21:00)
[2017-06-09] MEDS: MIDAZOLAM 2 MG/2 ML VIAL IVP PRN ×11 (00:35→18:20)
[2017-06-09] MEDS: LORazepam 2 MG/ML INJ IVP SCH ×5 (01:14→23:42)
[2017-06-09] MEDS: NS 1,000 ML IV SCH ×2 (01:53→02:00)
[2017-06-09] MEDS: HALOPERIDOL LACT 5 MG/ML INJ IVP PRN ×5 (01:53→22:57)
[2017-06-09] MEDS: IPRATROPIUM/ALBUTEROL 3 ML DEYVIAL IH PRN ×3 (02:02→16:54)
[2017-06-09] MEDS: DEXMEDETOMIDINE HCL 400 MCG in NS 100 ML IV SCH ×5 (03:00→23:42)
--- NOTE | 2017-06-09 08:22 | NEUSURGPN ---
Assessment/Plan: A: 71 yo M with hx of ETOH abuse, admitted with acute L5 fx after fall 1 week ago. Has hx of COPD, chronic pain, smoker. Plan: -Patient on CIWA protocol, on precedex/ativan/haldol -Imaging reviewed and no evidence of bony metastasis, has prior hx of prostate cancer -MRI L spine with severe spinal stenosis at L5/S1 with acute L5 fx -Recommend brace when OOB - to be fitted by gear changer. Have not been able to try this given ETOH withdrawal/agitation -Please call NS with any questions or concerns -Dr Armendariz saw patient as well Subjective: Unable to obtain, agitated in bed Objective: Restless Not following commands, patient on CIWA protocol restraints BUE MAEx4, trying to get out of bed Speech unintelligible Neuro Check Frequency: per routine Urinary Catheter in Place: Yes Urinary Catheter Indication: Accurate I & O Required - Physician Discussed Patient with Dr.: Armendariz Patient Seen by Dr.: Armendariz Neurosurgery Physical Exam - Vitals, I&O, Labs I and O 06/08/17 06/09/17 06/10/17 05:59 05:59 05:59 Intake Total 2640 Output Total 4 Balance 2636 Weight 57 kg 57 kg Intake: Oral (ml) 0 IV Intake (ml) 1200 IV Infused (ml) 1440 Dexmedetomidine HCl 400 231 mcg In Ns 100 ml @ Titrate IV CONT TERRY Rx#: [id number] Ns 1,000 ml @ 100 mls/hr 1209 IV CONT TERRY Rx#: [id number] Output: Urine (ml) 4 Incontinence 4 Toilet Urinal Other: Number of Voids Incontinence 5 Number of Stools Incontinence 0 Vital Signs Temp Pulse Resp BP Pulse Ox 37.7 C 63 29 H 147/75 H 90 L 06/09/17 06:07 06/09/17 06:07 06/09/17 06:07 06/09/17 06:07 06/09/17 06:07 Laboratory Results 06/09/17 04:45 06/09/17 04:45 ICD10 Worksheet Patient Problems: Problems Problem Status Onset Bilateral leg weakness Acute Low back pain Acute Accidental fall from chair Acute Acute encephalopathy Acute Acute hyperactive alcohol withdrawal delirium Acute Altered mental status Acute Aspiration into airway Acute Chronic pain Acute Closed right clavicular fracture Acute Dehydration Acute Failure to thrive Acute Generalized weakness Acute History of fall Acute Hypoxia Acute Multiple fractures of ribs of right side Acute Opiate dependence, continuous Acute Palliative care encounter Acute Pancreatitis Acute Pneumonia Acute Pneumonia Acute Polypharmacy Acute Polysubstance abuse Acute Polysubstance dependence including opioid drug with daily use Acute Recurrent falls Acute Rib fractures Acute Thoracic compression fracture Acute
[2017-06-09] MEDS: ENOXAPARIN 40 MG/0.4 ML SYR SC SCH (08:33)
[2017-06-09] MEDS: CITALOPRAM 20 MG TAB PO SCH (08:35)
[2017-06-09] MEDS: FOLIC ACID 1 MG TAB PO SCH (08:35)
[2017-06-09] MEDS: POTASSIUM CL 20 MEQ TAB PO SCH (08:36)
[2017-06-09] MEDS: MULTIVITAMINS 1 EACH TAB PO SCH (08:36)
[2017-06-09] MEDS: TAMSULOSIN HCL 0.4 MG CAP PO SCH (08:36)
[2017-06-09] MEDS: FAMOTIDINE 20 MG/NACL 50 ML IV SCH ×2 (08:40→21:00)
[2017-06-09] MEDS: ACETAMINOPHEN 650 MG SUPP PR PRN ×3 (08:46→22:57)
[2017-06-09] MEDS ORDERED: PROTOCOL MAGNESIUM 1 DOSE IV PRN (10:21)
[2017-06-09] MEDS ORDERED: PROTOCOL POTASSIUM 1 DOSE MISC PRN (10:21)
[2017-06-09] MEDS ORDERED: POTASSIUM Cl (KCl) 100 ML IV SCH ×2 (10:30→18:36)
--- NOTE | 2017-06-09 11:17 | PDINTPN ---
Oracle Developer Progress Note Assessment/Plan: Assessment/plan: * Alcohol withdrawal. On the new CIWA protocol. Requiring Precedex, scheduled Ativan, p.r.n. Versed and Haldol. On thiamin. * Recent fall, spinal compression fracture at L5. Neurosurgery following. Brace supposed to be worn when he is up. * COPD: Secondary to ongoing tobacco abuse. No evidence of an exacerbation. On nicotine patch, oxygen and p.r.n. Bronchodilators. * Pneumonia-possible aspiration -will send a sputum culture -will start antibiotics * Spinal stenosis, chronic back pain. * Prophylaxis: On enoxaparin and famotidine. * Metabolic: No issues identified. On replacement protocols. * Nutrition: None currently. Unsafe swallow secondary to mental status. Start oral intake when possible. Subjective: Opens his eyes. Nonverbal currently. Appears comfortable. Objective: Vital Signs Temp Pulse Resp BP Pulse Ox 38.8 C H 73 48 H 160/87 H 100 06/09/17 08:00 06/09/17 10:49 06/09/17 10:49 06/09/17 08:00 06/09/17 10:49 Laboratory Results 06/09/17 04:45 06/09/17 04:45 06/08/17 06/09/17 06/10/17 05:59 05:59 05:59 Intake Total 2640 Output Total 4 Balance 2636 PT 13.5 SEC (12.0-15.0) 06/05/17 22:00 INR 1.01 (0.83-1.16) 06/05/17 22:00 Chest [id number] by myself. Suggests bilateral lower lobe infiltrate - Time Spent With Patient Time Spent With Patient: 35 min of time spent with patient, over 1/2 involved with coordination of care or counseling Case discussed with respiratory therapy and nursing Physical Exam - Physical Exam General Appearance: No alert EENT: PERRL/EOMI Neck: non-tender, full range of motion, supple, normal inspection Respiratory: crackles (Bibasilar), prolonged expiration, No respiratory distress , No wheezing Cardiac/Chest: normal peripheral pulses, regular rate, rhythm Peripheral Pulses: 2+: carotid (R), carotid (L), femoral (R), femoral (L), dorsalis-pedis (R), dorsalis-pedis (L) Abdomen: normal bowel sounds, non-tender, soft Male Genitalia: deferred Rectal: deferred Skin: normal color, warm/dry Extremities: normal range of motion, non-tender, normal inspection, normal capillary refill Neuro/Psych: No alert ICD10 Worksheet Patient Problems: Problems Problem Status Onset Bilateral leg weakness Acute Low back pain Acute Accidental fall from chair Acute Acute encephalopathy Acute Acute hyperactive alcohol withdrawal delirium Acute Altered mental status Acute Aspiration into airway Acute Chronic pain Acute Closed right clavicular fracture Acute Dehydration Acute Failure to thrive Acute Generalized weakness Acute History of fall Acute Hypoxia Acute Multiple fractures of ribs of right side Acute Opiate dependence, continuous Acute Palliative care encounter Acute Pancreatitis Acute Pneumonia Acute Pneumonia Acute Polypharmacy Acute Polysubstance abuse Acute Polysubstance dependence including opioid drug with daily use Acute Recurrent falls Acute Rib fractures Acute Thoracic compression fracture Acute
[2017-06-09] MEDS: POTASSIUM Cl (KCl) 10 MEQ in NS 100 ML IV SCH ×6 (11:18→21:00)
--- NOTE | 2017-06-09 11:35 | HOSPPROG ---
Hospitalist Progress Note Assessment/Plan: #Fever: suspect aspiration. Sputum cultures pending. UA NL. Blood cultures pending #Alchohol w/d: precedex, scheduled Ativan. Chronic pain may be contributing to agitation. Increase morphine #Hypernatremia: D5W, repeat BMP #Leukocytosis: suspect aspiration PNA. Plan as above #Acute on chronic back pain: L5 compression fracture, severe spinal stenosis L4/ 5. No e/o bony lesions with h/o prostate cancer. NSGY reviewed. Brace when out of bed #Falls: related to Etoh #Torsades-appearing telemetry: 06/08. Replete K, Mg #Acute toxic encephalopathy: due to w/d #HTN: not on outpatient meds #COPD: no signs of exacerbation #Bradycardia: related to Precedex, wean today #Chronic hypoxemic resp failure: 3L at baseline #Chronic pain: MS contin at home. #Diet: NPO for now, IVFs. If not mentally clear, will need feeding tuns #DVT ppx: Lovenox #Disp: warrants ICU care with etoh w/d, requiring CIWA Subjective: still agitated Objective: Vital Signs Temp Pulse Resp BP Pulse Ox 38.8 C H 73 48 H 160/87 H 100 06/09/17 08:00 06/09/17 10:49 06/09/17 10:49 06/09/17 08:00 06/09/17 10:49 Laboratory Results 06/09/17 04:45 06/09/17 04:45 06/08/17 06/09/17 06/10/17 05:59 05:59 05:59 Intake Total 2640 Output Total 4 Balance 2636 PT 13.5 SEC (12.0-15.0) 06/05/17 22:00 INR 1.01 (0.83-1.16) 06/05/17 22:00 - Physical Exam Constitutional: unkempt, cachectic, other (diaphoretic) Eyes: PERRL Ears, Nose, Mouth, Throat: poor dentition Cardiovascular: regular rate and rhythym Respiratory: rhonchi Gastrointestinal: normoactive bowel sounds Genitourinary: no bladder fullness Neurologic: CN II-XII Intact, other Psychiatric: encephalopathic ICD10 Worksheet Patient Problems: Problems Problem Status Onset Bilateral leg weakness Acute Low back pain Acute Accidental fall from chair Acute Acute encephalopathy Acute Acute hyperactive alcohol withdrawal delirium Acute Altered mental status Acute Aspiration into airway Acute Chronic pain Acute Closed right clavicular fracture Acute Dehydration Acute Failure to thrive Acute Generalized weakness Acute History of fall Acute Hypoxia Acute Multiple fractures of ribs of right side Acute Opiate dependence, continuous Acute Palliative care encounter Acute Pancreatitis Acute Pneumonia Acute Pneumonia Acute Polypharmacy Acute Polysubstance abuse Acute Polysubstance dependence including opioid drug with daily use Acute Recurrent falls Acute Rib fractures Acute Thoracic compression fracture Acute
[2017-06-09] MEDS ORDERED: POTASSIUM Cl (KCl) 20 MEQ in D5W 1,000 ML IV SCH (12:00)
[2017-06-09] MEDS: ERTAPENEM 1 GM VIAL IV SCH (12:29)
[2017-06-09] MEDS ORDERED: POTASSIUM Cl (KCl) 20 MEQ in D5W LR 1,000 ML IV SCH (14:00)
[2017-06-09] MEDS: D5W 1,000 ML IV SCH (14:32)
--- NOTE | 2017-06-09 16:52 | ASMTCMCOM ---
CM Note CM Note Notes: Patient continues to be confused, lethargic not safe to swallow. May have aspirated. CIWA= 13 . [facility] Luc[facility] [phone]. Patient had been a client of [facility] but was discharged from their care in February. Date Signed: 06/09/2017 04:52 PM Electronically Signed By:Felicita Kay LCSW
[2017-06-09] MEDS ORDERED: POTASSIUM CL 10 MEQ TAB PO ONE (18:17)
[2017-06-10] MEDS ORDERED: THIAMINE HCL 100 MG TAB PO SCH (00:08)
[2017-06-10] MEDS: THIAMINE HCL 500 MG in NS 500 ML IV SCH (03:17)
[2017-06-10] MEDS: DEXMEDETOMIDINE HCL 400 MCG in NS 100 ML IV SCH ×3 (05:29→20:04)
[2017-06-10] MEDS: D5W 1,000 ML IV SCH (05:29)
[2017-06-10] MEDS: LORazepam 2 MG/ML INJ IVP SCH ×3 (05:48→18:27)
[2017-06-10] MEDS ORDERED: POTASSIUM Cl (KCl) 100 ML IV SCH (06:30)
[2017-06-10] MEDS: POTASSIUM Cl (KCl) 10 MEQ in NS 100 ML IV SCH ×6 (07:34→23:12)
--- NOTE | 2017-06-10 07:38 | NEUSURGPN ---
Assessment/Plan: Assessment: 71 yo M with hx of ETOH abuse, admitted with acute L5 fx after fall 1 week ago. Has hx of COPD, chronic pain, smoker Plan: -Patient on CIWA protocol, on precedex/ativan/haldol -Imaging reviewed and no evidence of bony metastasis, has prior hx of prostate cancer -MRI L spine with severe spinal stenosis at L5/S1 with acute L5 fx -Recommend brace when OOB - to be fitted by Weight And Balance Control Agent-have not been able to try this given ETOH withdrawal/agitation -PT/OT on hold due to ETOH withdrawl -Please call NS with any questions or concerns -Dr Armendariz saw patient as well -updated from RN Subjective: No new events overnight. Pt is withdraw with DT's. Objective: Restless Not following commands, patient on CIWA protocol restraints BUE MAEx4, trying to get out of bed Speech unintelligible opens eyes to verbal and painful stimuli Neuro Check Frequency: per routine Urinary Catheter in Place: No Catheter Insertion Date: 06/10/17 - Physician Discussed Patient with Dr.: Armendariz Patient Seen by Dr.: Armendariz Neurosurgery Physical Exam - Vitals, I&O, Labs I and O 06/09/17 06/10/17 06/11/17 05:59 05:59 05:59 Intake Total 2640 3847 Output Total 4 600 Balance 2636 3247 Weight 57 kg 57 kg 57.7 kg Intake: Oral (ml) 0 IV Intake (ml) 1200 950 IV Infused (ml) 1440 2897 D5w 1,000 ml @ 100 mls/hr 2140 IV CONT TERRY Rx#: [id number] Dexmedetomidine HCl 400 231 757 mcg In Ns 100 ml @ Titrate IV CONT TERRY Rx#: [id number] Ns 1,000 ml @ 100 mls/hr 1209 IV CONT TERRY Rx#: [id number] Output: Urine (ml) 4 600 Catheter 600 Incontinence 4 Other: Number of Voids Incontinence 5 2 Number of Stools Catheter 0 Incontinence 0 Microbiology 06/09/17 11:15 - Final Sputum, Induced/Suctioned Vital Signs Temp Pulse Resp BP Pulse Ox 36.7 C 52 L 24 H 136/65 H 94 06/10/17 04:00 06/10/17 06:33 06/10/17 06:00 06/10/17 06:33 06/10/17 06:00 Laboratory Results 06/09/17 04:45 06/10/17 05:00 ICD10 Worksheet Patient Problems: Problems Problem Status Onset Bilateral leg weakness Acute Low back pain Acute Accidental fall from chair Acute Acute encephalopathy Acute Acute hyperactive alcohol withdrawal delirium Acute Altered mental status Acute Aspiration into airway Acute Chronic pain Acute Closed right clavicular fracture Acute Dehydration Acute Failure to thrive Acute Generalized weakness Acute History of fall Acute Hypoxia Acute Multiple fractures of ribs of right side Acute Opiate dependence, continuous Acute Palliative care encounter Acute Pancreatitis Acute Pneumonia Acute Pneumonia Acute Polypharmacy Acute Polysubstance abuse Acute Polysubstance dependence including opioid drug with daily use Acute Recurrent falls Acute Rib fractures Acute Thoracic compression fracture Acute
[2017-06-10] MEDS: ENOXAPARIN 40 MG/0.4 ML SYR SC SCH (08:58)
[2017-06-10] MEDS: FAMOTIDINE 20 MG/NACL 50 ML IV SCH ×2 (08:59→22:01)
[2017-06-10] MEDS: ERTAPENEM 1 GM VIAL IV SCH (08:59)
[2017-06-10] MEDS ORDERED: AZITHROMYCIN IV 500 MG in D5W 250 ML IV SCH (09:00)
[2017-06-10] MEDS ORDERED: cefTRIAXone 1 GM in STERILE WATER INJ 10 ML IV SCH (09:00)
[2017-06-10] MEDS ORDERED: ERTAPENEM 1 GM VIAL IVP SCH (09:00)
--- NOTE | 2017-06-10 09:28 | PDINTPN ---
Brim Pouncer Machine Operator Progress Note Assessment/Plan: Assessment/plan: * Alcohol withdrawal. On the new CIWA protocol. Requiring Precedex, scheduled Ativan, p.r.n. Versed and Haldol. On thiamin. -improved * Recent fall, spinal compression fracture at L5. Neurosurgery following. Brace supposed to be worn when he is up. * COPD: Secondary to ongoing tobacco abuse. No evidence of an exacerbation. On nicotine patch, oxygen and p.r.n. Bronchodilators. * Pneumonia-possible aspiration -will send a sputum culture -continue * Spinal stenosis, chronic back pain. * Prophylaxis: On enoxaparin and famotidine. * Metabolic: No issues identified. On replacement protocols. * Nutrition: None currently. Unsafe swallow secondary to mental status. Start oral intake when possible. Subjective: Resting comfortably. Objective: Vital Signs Temp Pulse Resp BP Pulse Ox 36.7 C 52 L 24 H 136/65 H 94 06/10/17 04:00 06/10/17 06:33 06/10/17 06:00 06/10/17 06:33 06/10/17 06:00 Microbiology 06/09/17 11:15 - Final Sputum, Induced/Suctioned Laboratory Results 06/10/17 08:50 06/10/17 05:00 06/09/17 06/10/17 06/11/17 05:59 05:59 05:59 Intake Total 2640 3847 Output Total 4 600 Balance 2636 3247 PT 13.5 SEC (12.0-15.0) 06/05/17 22:00 INR 1.01 (0.83-1.16) 06/05/17 22:00 - Time Spent With Patient Time Spent With Patient: 35 min of time spent with patient, over 1/2 involved with coordination of care counseling Physical Exam - Physical Exam General Appearance: alert, no apparent distress EENT: PERRL/EOMI Neck: non-tender, full range of motion, supple, normal inspection Respiratory: crackles (Few), No respiratory distress, No stridor, No wheezing Cardiac/Chest: normal peripheral pulses, regular rate, rhythm Peripheral Pulses: 2+: carotid (R), carotid (L), femoral (R), femoral (L), dorsalis-pedis (R), dorsalis-pedis (L) Abdomen: normal bowel sounds, non-tender, soft Male Genitalia: deferred Rectal: deferred Skin: normal color, warm/dry Extremities: non-tender ICD10 Worksheet Patient Problems: Problems Problem Status Onset Bilateral leg weakness Acute Low back pain Acute Accidental fall from chair Acute Acute encephalopathy Acute Acute hyperactive alcohol withdrawal delirium Acute Altered mental status Acute Aspiration into airway Acute Chronic pain Acute Closed right clavicular fracture Acute Dehydration Acute Failure to thrive Acute Generalized weakness Acute History of fall Acute Hypoxia Acute Multiple fractures of ribs of right side Acute Opiate dependence, continuous Acute Palliative care encounter Acute Pancreatitis Acute Pneumonia Acute Pneumonia Acute Polypharmacy Acute Polysubstance abuse Acute Polysubstance dependence including opioid drug with daily use Acute Recurrent falls Acute Rib fractures Acute Thoracic compression fracture Acute
[2017-06-10] MEDS: MULTIVITAMINS 1 EACH TAB PO SCH (10:02)
[2017-06-10] MEDS: CITALOPRAM 20 MG TAB PO SCH (10:02)
[2017-06-10] MEDS: POTASSIUM CL 20 MEQ TAB PO SCH (10:02)
[2017-06-10] MEDS: FOLIC ACID 1 MG TAB PO SCH (10:02)
[2017-06-10] MEDS: TAMSULOSIN HCL 0.4 MG CAP PO SCH (10:03)
[2017-06-10] MEDS: IPRATROPIUM/ALBUTEROL 3 ML DEYVIAL IH PRN ×3 (11:30→23:33)
[2017-06-10] MEDS ORDERED: FUROSEMIDE 20 MG/2 ML VIAL IVP ONE (11:52)
[2017-06-10] MEDS: ACETYLCYSTEINE 10% IH/PO 4 ML VIAL IH SCH ×3 (13:36→23:33)
[2017-06-10] MEDS ORDERED: VANCOMYCIN 750 MG in D5W 150 ML IV SCH (15:00)
--- NOTE | 2017-06-10 15:06 | HOSPPROG ---
Hospitalist Progress Note Assessment/Plan: #Fever: aspiration PNA. Sputum positive for S. aureus. Add vancomycin. UA NL. Blood cultures pending #Alchohol w/d: still requiring precedex, scheduled Ativan. Chronic pain may be contributing to agitation. Increase morphine #Hypernatremia: D5W, repeat BMP #Leukocytosis: suspect aspiration PNA. Plan as above #Acute on chronic back pain: L5 compression fracture, severe spinal stenosis L4/ 5. No e/o bony lesions with h/o prostate cancer. NSGY reviewed. Brace when out of bed #Falls: related to Etoh #Torsades-appearing telemetry: 06/08. Replete K, Mg #Acute toxic encephalopathy: due to w/d #HTN: not on outpatient meds #COPD: no signs of exacerbation #Bradycardia: related to Precedex, wean today #Chronic hypoxemic resp failure: 3L at baseline #Chronic pain: MS contin at home. #Diet: NPO for now, IVFs. Too agitated for feeding tube today #DVT ppx: Lovenox #Disp: warrants ICU care with etoh w/d, requiring CIWA Subjective: still requiring Precedex Objective: Vital Signs Temp Pulse Resp BP Pulse Ox 36.7 C 72 30 H 142/76 H 98 06/10/17 08:00 06/10/17 14:00 06/10/17 14:00 06/10/17 14:00 06/10/17 14:00 Microbiology 06/09/17 11:15 - Final Sputum, Induced/Suctioned Laboratory Results 06/10/17 08:50 06/09/17 06/10/17 06/11/17 05:59 05:59 05:59 Intake Total 2640 3847 Output Total 4 600 125 Balance 2636 3247 -125 PT 13.5 SEC (12.0-15.0) 06/05/17 22:00 INR 1.01 (0.83-1.16) 06/05/17 22:00 - Physical Exam Constitutional: cachectic Eyes: PERRL Ears, Nose, Mouth, Throat: dry mucous membranes Cardiovascular: regular rate and rhythym Respiratory: other Gastrointestinal: normoactive bowel sounds, soft, non-tender abdomen Genitourinary: no bladder fullness Skin: warm Musculoskeletal: other (restrained) Psychiatric: encephalopathic, agitated ICD10 Worksheet Patient Problems: Problems Problem Status Onset Bilateral leg weakness Acute Low back pain Acute Accidental fall from chair Acute Acute encephalopathy Acute Acute hyperactive alcohol withdrawal delirium Acute Altered mental status Acute Aspiration into airway Acute Chronic pain Acute Closed right clavicular fracture Acute Dehydration Acute Failure to thrive Acute Generalized weakness Acute History of fall Acute Hypoxia Acute Multiple fractures of ribs of right side Acute Opiate dependence, continuous Acute Palliative care encounter Acute Pancreatitis Acute Pneumonia Acute Pneumonia Acute Polypharmacy Acute Polysubstance abuse Acute Polysubstance dependence including opioid drug with daily use Acute Recurrent falls Acute Rib fractures Acute Thoracic compression fracture Acute
[2017-06-10] MEDS: NICOTINE 21 MG/24 HR PATCH TD SCH (15:19)
[2017-06-10] MEDS: D5W 1/2 NS 1,000 ML IV SCH (15:40)
[2017-06-10] MEDS: VANCOMYCIN 750 MG in NS 150 ML IV SCH (15:40)
[2017-06-11] MEDS: POTASSIUM Cl (KCl) 10 MEQ in NS 100 ML IV SCH ×3 (00:14→08:24)
[2017-06-11] MEDS: DEXMEDETOMIDINE HCL 400 MCG in NS 100 ML IV SCH ×3 (01:58→19:07)
[2017-06-11] MEDS: LORazepam 2 MG/ML INJ IVP SCH ×4 (02:02→18:32)
[2017-06-11] MEDS: VANCOMYCIN 750 MG in NS 150 ML IV SCH (03:34)
[2017-06-11] MEDS: IPRATROPIUM/ALBUTEROL 3 ML DEYVIAL IH PRN (05:43)
[2017-06-11] MEDS: ACETYLCYSTEINE 10% IH/PO 4 ML VIAL IH SCH ×2 (05:43→13:53)
--- NOTE | 2017-06-11 07:23 | NEUSURGPN ---
Assessment/Plan: Assessment: 71 yo M with hx of ETOH abuse, admitted with acute L5 fx after fall 1 week prior to admission. Has hx of COPD, chronic pain, smoker Plan: -Patient on CIWA protocol, on precedex/ativan/haldol -pt with worsening pulmonary status-critical care and IM on board -Imaging reviewed and no evidence of bony metastasis, has prior hx of prostate cancer -MRI L spine with severe spinal stenosis at L5/S1 with acute L5 fx -Recommend brace when OOB - to be fitted by [employer]-have not been able to try this given ETOH withdrawal/agitation -PT/OT on hold due to ETOH withdrawl/pulmonary status -Please call NS with any questions or concerns -s/w Dr Armendariz -updated from RN Subjective: No new events overnight. Pt with poor pulmonary status. Update from RN Objective: Restless Not following commands, patient on CIWA protocol restraints BUE MAEx4 spontaneously opens eyes to verbal and painful stimuli Neuro Check Frequency: per routine Urinary Catheter in Place: No Catheter Insertion Date: 06/10/17 - Physician Discussed Patient with Dr.: Armendariz Neurosurgery Physical Exam - Vitals, I&O, Labs I and O 06/10/17 06/11/17 06/12/17 05:59 05:59 05:59 Intake Total 3847 3046 Output Total 600 2675 Balance 3247 371 Weight 57 kg 60.9 kg 60.9 kg Intake: IV Intake (ml) 950 1546 IV Infused (ml) 2897 1500 D5w 1,000 ml @ 75 mls/hr 2140 IV CONT TERRY Rx#: [id number] D5w 1/2 Ns 1,000 ml @ 75 1098 mls/hr IV CONT TERRY Rx#: [id number] Dexmedetomidine HCl 400 757 402 mcg In Ns 100 ml @ Titrate IV CONT TERRY Rx#: [id number] Output: Urine (ml) 600 2675 Catheter 600 2675 Other: Output Comment Catheter pt pulled mccoy Number of Voids Incontinence 2 Number of Stools Catheter 0 Microbiology 06/09/17 11:15 - Final Sputum, Induced/Suctioned Vital Signs Temp Pulse Resp BP Pulse Ox 36.6 C 78 29 H 134/67 H 98 06/11/17 04:00 06/11/17 06:00 06/11/17 06:00 06/11/17 06:00 06/11/17 06:00 Laboratory Results 06/11/17 04:30 06/11/17 04:30 ICD10 Worksheet Patient Problems: Problems Problem Status Onset Bilateral leg weakness Acute Low back pain Acute Accidental fall from chair Acute Acute encephalopathy Acute Acute hyperactive alcohol withdrawal delirium Acute Altered mental status Acute Aspiration into airway Acute Chronic pain Acute Closed right clavicular fracture Acute Dehydration Acute Failure to thrive Acute Generalized weakness Acute History of fall Acute Hypoxia Acute Multiple fractures of ribs of right side Acute Opiate dependence, continuous Acute Palliative care encounter Acute Pancreatitis Acute Pneumonia Acute Pneumonia Acute Polypharmacy Acute Polysubstance abuse Acute Polysubstance dependence including opioid drug with daily use Acute Recurrent falls Acute Rib fractures Acute Thoracic compression fracture Acute
[2017-06-11] MEDS: THIAMINE HCL 500 MG in NS 500 ML IV SCH (08:24)
--- NOTE | 2017-06-11 09:32 | PDINTPN ---
Mechanics Handyman Progress Note Assessment/Plan: Assessment/plan: * Alcohol withdrawal. On the new CIWA protocol. Requiring Precedex, scheduled Ativan, p.r.n. Versed and Haldol. On thiamin. -improved * Recent fall, spinal compression fracture at L5. Neurosurgery following. Brace supposed to be worn when he is up. * COPD: Secondary to ongoing tobacco abuse. No evidence of an exacerbation. On nicotine patch, oxygen and p.r.n. Bronchodilators. * Pneumonia-possible aspiration. Growing Staph -continue current antibiotics -check chest x-ray * Acute respiratory failure-secondary to pneumonia and chronic obstructive pulmonary disease. High oxygen requirements at this time. Patient wanted percent non-rebreather. * Spinal stenosis, chronic back pain. * Prophylaxis: On enoxaparin and famotidine. * Metabolic: No issues identified. On replacement protocols. * Nutrition: None currently. Unsafe swallow secondary to mental status. Start oral intake when possible. * Do not resuscitate * Prognosis-overall patient not improving. Subjective: Poorly responsive. Objective: Vital Signs Temp Pulse Resp BP Pulse Ox 37.5 C 67 32 H 133/68 H 99 06/11/17 07:49 06/11/17 07:49 06/11/17 07:49 06/11/17 07:49 06/11/17 07:49 Microbiology 06/09/17 11:15 - Final Sputum, Induced/Suctioned Laboratory Results 06/11/17 04:30 06/11/17 04:30 06/10/17 06/11/17 06/12/17 05:59 05:59 05:59 Intake Total 3847 3046 Output Total 600 2675 Balance 3247 371 PT 13.5 SEC (12.0-15.0) 06/05/17 22:00 INR 1.01 (0.83-1.16) 06/05/17 22:00 Laboratory Results 06/11/17 04:30 06/11/17 04:30 06/09/17 11:15 - Final Sputum, Induced/Suctioned Sputum Culture - Preliminary Staphylococcus Aureus - Time Spent With Patient Time Spent With Patient: 35 min of time spent with patient, over 1/2 involved with coordination of care or counseling. Case discussed with Nursing and Respiratory therapy Physical Exam - Physical Exam General Appearance: No alert EENT: PERRL/EOMI Neck: non-tender, full range of motion, supple, normal inspection Respiratory: crackles (Bibasilar), prolonged expiration, No wheezing Cardiac/Chest: normal peripheral pulses, regular rate, rhythm Peripheral Pulses: 2+: carotid (R), carotid (L), femoral (R), femoral (L), dorsalis-pedis (R), dorsalis-pedis (L) Abdomen: normal bowel sounds, non-tender, soft Male Genitalia: deferred Rectal: deferred Skin: normal color, warm/dry Extremities: normal range of motion, non-tender, normal inspection, normal capillary refill Neuro/Psych: No alert, No normal mood/affect, No oriented x 3 ICD10 Worksheet Patient Problems: Problems Problem Status Onset Bilateral leg weakness Acute Low back pain Acute Accidental fall from chair Acute Acute encephalopathy Acute Acute hyperactive alcohol withdrawal delirium Acute Altered mental status Acute Aspiration into airway Acute Chronic pain Acute Closed right clavicular fracture Acute Dehydration Acute Failure to thrive Acute Generalized weakness Acute History of fall Acute Hypoxia Acute Multiple fractures of ribs of right side Acute Opiate dependence, continuous Acute Palliative care encounter Acute Pancreatitis Acute Pneumonia Acute Pneumonia Acute Polypharmacy Acute Polysubstance abuse Acute Polysubstance dependence including opioid drug with daily use Acute Recurrent falls Acute Rib fractures Acute Thoracic compression fracture Acute
[2017-06-11] MEDS: FAMOTIDINE 20 MG/NACL 50 ML IV SCH (09:40)
[2017-06-11] MEDS: NICOTINE 21 MG/24 HR PATCH TD SCH (09:40)
[2017-06-11] MEDS: CITALOPRAM 20 MG TAB PO SCH (09:56)
[2017-06-11] MEDS: FOLIC ACID 1 MG TAB PO SCH (09:57)
[2017-06-11] MEDS: ENOXAPARIN 40 MG/0.4 ML SYR SC SCH (09:57)
[2017-06-11] MEDS: TAMSULOSIN HCL 0.4 MG CAP PO SCH (09:58)
[2017-06-11] MEDS: MULTIVITAMINS 1 EACH TAB PO SCH (09:58)
[2017-06-11] MEDS: POTASSIUM CL 20 MEQ TAB PO SCH (09:58)
[2017-06-11] MEDS: ERTAPENEM 1 GM VIAL IV SCH (10:01)
[2017-06-11] MEDS ORDERED: LIDOCAINE 2% JELLY 20 ML (UROJECT) TP ONE (12:00)
--- NOTE | 2017-06-11 12:13 | ASMTCMCOM ---
CM Note CM Note Notes: Patient has specific instructions listed in living will and [facility] papers in the front of his chart and has had [facility] in the past. [facility], called [facility] Baltazar Lucio, and left a generic message to check in with him for patient needs for family meeting or palliative care consult. D/C plan TBD. CM will follow. Date Signed: 06/11/2017 12:12 PM Electronically Signed By:Leticia Ying LCSW
--- NOTE | 2017-06-11 13:25 | HOSPPROG ---
Hospitalist Progress Note Assessment/Plan: #Fever: aspiration PNA. Sputum positive for S. aureus. -cont Ertapenem -Stop Vancomycin -f/u cultures #Acute Alchohol w/d: still requiring precedex, scheduled Ativan. #Hypernatremia: resolved -Cont D51/2NS #Leukocytosis: suspect aspiration PNA. Plan as above #Acute on chronic back pain: L5 compression fracture, severe spinal stenosis L4/ 5. No e/o bony lesions with h/o prostate cancer. NSGY reviewed. Brace when out of bed #Falls: related to Etoh #Torsades-appearing telemetry: 06/08. Replete K, Mg #Acute toxic encephalopathy: due to w/d #HTN: not on outpatient meds #COPD: no signs of exacerbation #Bradycardia: related to Precedex, cont to wean #Chronic hypoxemic resp failure: 3L at baseline #Chronic pain: MS contin, Neurontin, Flexeril #Tobacco abuse: nicotine replacement #Diet: NPO, IVFs. Feeding tube. #DVT ppx: Lovenox #Disp: warrants ICU care with etoh w/d, requiring CIWA Plan: stop Vanco Cont Ertapenem Cont CIWA Cont ICU care Poor Prognosis total CCT is 35 minutes D/W ICU Team during team rounds. D/W pharmacist Subjective: Still NPO. Leukocytosis is better. Objective: Vital Signs Temp Pulse Resp BP Pulse Ox 37 C 75 30 H 155/82 H 98 06/11/17 12:00 06/11/17 12:00 06/11/17 12:00 06/11/17 12:00 06/11/17 12:00 Microbiology 06/09/17 11:15 - Final Sputum, Induced/Suctioned Sputum Culture - Final Staphylococcus Aureus Laboratory Results 06/11/17 04:30 06/11/17 04:30 06/10/17 06/11/17 06/12/17 05:59 05:59 05:59 Intake Total 3847 3046 Output Total 600 2675 Balance 3247 371 PT 13.5 SEC (12.0-15.0) 06/05/17 22:00 INR 1.01 (0.83-1.16) 06/05/17 22:00 - Physical Exam Constitutional: no apparent distress Eyes: PERRL Ears, Nose, Mouth, Throat: moist mucous membranes Cardiovascular: regular rate and rhythym, No edema Respiratory: reduced air movement Gastrointestinal: normoactive bowel sounds Skin: warm Neurologic: No AAOx3 Psychiatric: No interacting appropriately, No encephalopathic Lymph, Heme, Immunologic: No petechiae ICD10 Worksheet Patient Problems: Problems Problem Status Onset Bilateral leg weakness Acute Low back pain Acute Accidental fall from chair Acute Acute encephalopathy Acute Acute hyperactive alcohol withdrawal delirium Acute Altered mental status Acute Aspiration into airway Acute Chronic pain Acute Closed right clavicular fracture Acute Dehydration Acute Failure to thrive Acute Generalized weakness Acute History of fall Acute Hypoxia Acute Multiple fractures of ribs of right side Acute Opiate dependence, continuous Acute Palliative care encounter Acute Pancreatitis Acute Pneumonia Acute Pneumonia Acute Polypharmacy Acute Polysubstance abuse Acute Polysubstance dependence including opioid drug with daily use Acute Recurrent falls Acute Rib fractures Acute Thoracic compression fracture Acute
[2017-06-11] MEDS ORDERED: ACETYLCYSTEINE 10% IH/PO 4 ML VIAL IH PRN (14:30)
[2017-06-11] MEDS: D5W 1/2 NS 1,000 ML IV SCH (15:16)
[2017-06-11 18:10] VITALS: BP 118/65; PULSE 108; RESP 32; O2SAT 90
[2017-06-11 18:12] VITALS: TEMP 99.5
[2017-06-13] MEDS ORDERED: THIAMINE HCL 100 MG TAB PO SCH (09:00)
== END 2017-06-11 21:00 | disposition expired | DRG 551 ==
LOC: F3N 06-06 00:30 → OBSVTOIN 06-06 14:59 → F3N 06-07 02:15 → F2N 06-07 04:13
PROVIDERS: ADMIT Family Medicine; ATTEND Family Medicine
DX: S32.059A Unspecified fracture of fifth lumbar vertebra, initial encounter for closed fracture (principal); M48.061 Spinal stenosis, lumbar region without neurogenic claudication; J96.21 Acute and chronic respiratory failure with hypoxia; J69.0 Pneumonitis due to inhalation of food and vomit; J15.211 Pneumonia due to Methicillin susceptible Staphylococcus aureus; F10.231 Alcohol dependence with withdrawal delirium; E87.0 Hyperosmolality and hypernatremia; G89.29 Other chronic pain; F11.20 Opioid dependence, uncomplicated; R63.6 Underweight; Z68.1 Body mass index [BMI] 19.9 or less, adult; J44.9 Chronic obstructive pulmonary disease, unspecified; M51.16 Intervertebral disc disorders with radiculopathy, lumbar region; G62.9 Polyneuropathy, unspecified; D64.9 Anemia, unspecified; C61 Malignant neoplasm of prostate; I10 Essential (primary) hypertension; F17.210 Nicotine dependence, cigarettes, uncomplicated; R26.81 Unsteadiness on feet; R73.9 Hyperglycemia, unspecified; R00.1 Bradycardia, unspecified; T42.75XA Adverse effect of unspecified antiepileptic and sedative-hypnotic drugs, initial encounter; W18.49XA Other slipping, tripping and stumbling without falling, initial encounter; Y92.019 Unspecified place in single-family (private) house as the place of occurrence of the external cause; Z99.81 Dependence on supplemental oxygen; Z91.81 History of falling; Z66 Do not resuscitate; Z79.52 Long term (current) use of systemic steroids; Z79.51 Long term (current) use of inhaled steroids
CPT/HCPCS: 96374; A9585; G0480; J0696; J1100; J1335; J1630; J1650; J1885; J1940; J2060; J2250; J2270; J3370; J3411; J3475; J3480; Q9967